=== PATIENT | female | born 1960 | race Caucasian/White ===

== ENCOUNTER 2022-08-12 13:40 | Inpatient (IN) | payer OTHER ==
[2022-08-12 15:34] VITALS: BMI 24.5
[2022-08-12] MEDS ORDERED: BISMUTH SUBSALICYLATE 524 MG/30 ML PO PRN (16:52)
[2022-08-12] MEDS ORDERED: LOPERAMIDE HCL 2 MG CAPSULE PO PRN (16:52)
[2022-08-12] MEDS ORDERED: BENZOCAINE/MENTHOL (CHLORASEPTIC ) LOZENGE MM PRN (16:52)
[2022-08-12] MEDS ORDERED: methaDONE HCL 10 MG TABLET (FOR DETOX USE ONLY) PO ONE (16:52)
[2022-08-12] MEDS ORDERED: NALOXONE HCL (KLOXXADO) 8 MG SPRAY NS PRN (16:52)
[2022-08-12] MEDS ORDERED: ACETAMINOPHEN 325 MG TABLET (FP) PO PRN (16:52)
[2022-08-12] MEDS ORDERED: NICOTINE 10 MG CARTRIDGE (INHALER) IH PRN (16:52)
[2022-08-12] MEDS ORDERED: cloNIDine HCL 0.1 MG TABLET PO PRN (16:52)
[2022-08-12] MEDS ORDERED: MAGNESIUM HYDROX 2400MG/30ML ORAL SUSPENSION 30 ML CUP PO PRN (16:52)
[2022-08-12] MEDS ORDERED: DICYCLOMINE HCL 10 MG CAPSULE PO PRN (16:52)
[2022-08-12] MEDS ORDERED: POLYETHYLENE GLYCOL (HEALTHYLAX) 3350 17 GM PACKET PO PRN (16:52)
[2022-08-12] MEDS ORDERED: methaDONE HCL 10 MG TABLET (FOR DETOX USE ONLY) ONE (18:42)
[2022-08-12] MEDS ORDERED: diazePAM 5 MG TABLET ONE (18:42)
[2022-08-12] MEDS ORDERED: IBUPROFEN 600 MG TABLET (FP) PO ONE (18:43)
[2022-08-12] MEDS: diazePAM 5 MG TABLET PO SCH ×2 (18:47→23:17)
[2022-08-12] MEDS: IBUPROFEN 600 MG TABLET (FP) PO PRN (18:47)
[2022-08-12] MEDS: THIAMINE HCL 100 MG TABLET (FP) PO SCH (23:17)
[2022-08-12] MEDS: MELATONIN 5 MG TABLETS PO SCH (23:17)
[2022-08-13] MEDS ORDERED: HYDROCORTISONE 1% TOPICAL CREAM 30 GM TUBE TP PRN (00:44)
[2022-08-13] MEDS: diazePAM 5 MG TABLET PO SCH ×4 (06:32→22:02)
[2022-08-13] MEDS: IBUPROFEN 600 MG TABLET (FP) PO PRN (06:35)
[2022-08-13] MEDS: METHOCARBAMOL 500 MG TABLET PO PRN (06:35)
[2022-08-13] MEDS: PRENATAL VITAMINS W/ FOLIC ACID TABLET (FP) PO SCH (10:16)
[2022-08-13] MEDS: diazePAM 5 MG TABLET PO PRN (14:08)
[2022-08-13] MEDS ORDERED: ALBUTEROL SO4 HFA INHALER IH PRN (16:29)
[2022-08-13] MEDS: MELATONIN 5 MG TABLETS PO SCH (22:01)
[2022-08-13] MEDS: BRIMONIDINE TARTRATE 0.2% OPHTHALMIC 5 ML BOTTLE OS SCH (22:01)
[2022-08-13] MEDS: THIAMINE HCL 100 MG TABLET (FP) PO SCH (22:01)
[2022-08-13] MEDS: METOPROLOL TARTRATE 25 MG TABLET (FP) PO SCH (22:01)
[2022-08-14] MEDS: IBUPROFEN 400 MG TABLET (FP) PO PRN (02:01)
[2022-08-14] MEDS: diazePAM 5 MG TABLET PO SCH ×3 (05:25→22:26)
[2022-08-14] MEDS: LEVOTHYROXINE NA 100 MCG TABLET (FP) PO SCH (06:03)
[2022-08-14] MEDS ORDERED: methaDONE HCL 10 MG TABLET (FOR DETOX USE ONLY) PO ONE (10:00)
[2022-08-14] MEDS: ASPIRIN 81 MG CHEWABLE TABLETS PO SCH (10:22)
[2022-08-14] MEDS: PRENATAL VITAMINS W/ FOLIC ACID TABLET (FP) PO SCH (10:23)
[2022-08-14] MEDS: METOPROLOL TARTRATE 25 MG TABLET (FP) PO SCH ×2 (10:23→22:05)
[2022-08-14] MEDS: PARoxetine HCL 20 MG TABLET PO SCH (10:23)
[2022-08-14] MEDS: METHOCARBAMOL 500 MG TABLET PO PRN (10:23)
[2022-08-14] MEDS: BRIMONIDINE TARTRATE 0.2% OPHTHALMIC 5 ML BOTTLE OS SCH ×2 (10:28→22:05)
[2022-08-14] MEDS: diazePAM 5 MG TABLET PO PRN (12:23)
[2022-08-14 14:08] LABS: HEMATOCRIT 32.3 % (32.4-45.2); HEMOGLOBIN 10.6 GM/dL (10.7-15.3); MCHC 32.8 g/dl (32.0-36.0); MEAN CELL VOLUME 91.7 fl (80-96); MEAN PLT VOLUME 8.3 fl (7.5-11.1); PLATELET COUNT 257 10^3/uL (134-434); RBC 3.52 M/mm3 (3.60-5.2); RDW 19.7 % (11.6-15.6); WHITE BLOOD COUNT 6.8 K/mm3 (4.0-10.0)
[2022-08-14] MEDS: ACETAMINOPHEN 325 MG TABLET (FP) PO PRN (15:19)
[2022-08-14 15:34] LABS: BILIRUBIN,TOTAL 0.2 mg/dL (0.2-1); BLOOD UREA NITROGEN 15.1 mg/dL (7-18)
[2022-08-14 15:35] LABS: CREATININE 0.5 mg/dL (0.55-1.3)
[2022-08-14] MEDS: IBUPROFEN 600 MG TABLET (FP) PO PRN (22:05)
[2022-08-14] MEDS: THIAMINE HCL 100 MG TABLET (FP) PO SCH (22:05)
[2022-08-14] MEDS: MELATONIN 5 MG TABLETS PO SCH (22:12)
[2022-08-14] MEDS: MAG HYDROX/AL HYDROX/SIMETH 30 ML UNIT-DOSE CUP PO PRN (23:11)
[2022-08-15] MEDS: diazePAM 5 MG TABLET PO SCH ×2 (05:40→18:07)
[2022-08-15] MEDS: IBUPROFEN 400 MG TABLET (FP) PO PRN (05:42)
[2022-08-15] MEDS: LEVOTHYROXINE NA 100 MCG TABLET (FP) PO SCH (06:01)
[2022-08-15] MEDS: PARoxetine HCL 20 MG TABLET PO SCH (10:25)
[2022-08-15] MEDS: PRENATAL VITAMINS W/ FOLIC ACID TABLET (FP) PO SCH (10:25)
[2022-08-15] MEDS: ASPIRIN 81 MG CHEWABLE TABLETS PO SCH (10:25)
[2022-08-15] MEDS: METOPROLOL TARTRATE 25 MG TABLET (FP) PO SCH ×2 (10:26→22:58)
[2022-08-15] MEDS: BRIMONIDINE TARTRATE 0.2% OPHTHALMIC 5 ML BOTTLE OS SCH ×2 (10:26→22:59)
[2022-08-15] MEDS ORDERED: ONDANSETRON *ODT* 4 MG TABLET SL ONE (10:30)
[2022-08-15] MEDS: IBUPROFEN 600 MG TABLET (FP) PO PRN (18:07)
[2022-08-15] MEDS: MELATONIN 5 MG TABLETS PO SCH (22:58)
[2022-08-15] MEDS: THIAMINE HCL 100 MG TABLET (FP) PO SCH (22:58)
[2022-08-16] MEDS: MELATONIN 5 MG TABLETS PO SCH ×2 (00:47→22:00)
[2022-08-16] MEDS: METHOCARBAMOL 500 MG TABLET PO PRN (00:47)
[2022-08-16] MEDS: MAG HYDROX/AL HYDROX/SIMETH 30 ML UNIT-DOSE CUP PO PRN ×2 (00:49→21:59)
[2022-08-16] MEDS ORDERED: diazePAM 5 MG TABLET PO ONE (06:00)
[2022-08-16] MEDS: LEVOTHYROXINE NA 100 MCG TABLET (FP) PO SCH (06:24)
[2022-08-16] MEDS ORDERED: methaDONE HCL 10 MG TABLET (FOR DETOX USE ONLY) PO ONE (10:00)
[2022-08-16] MEDS: ASPIRIN 81 MG CHEWABLE TABLETS PO SCH (10:27)
[2022-08-16] MEDS: METOPROLOL TARTRATE 25 MG TABLET (FP) PO SCH ×2 (10:27→21:59)
[2022-08-16] MEDS: PRENATAL VITAMINS W/ FOLIC ACID TABLET (FP) PO SCH (10:28)
[2022-08-16] MEDS: PARoxetine HCL 20 MG TABLET PO SCH (10:28)
[2022-08-16] MEDS: ACETAMINOPHEN 325 MG TABLET (FP) PO PRN ×2 (10:30→20:49)
[2022-08-16] MEDS: BRIMONIDINE TARTRATE 0.2% OPHTHALMIC 5 ML BOTTLE OS SCH ×2 (10:32→21:59)
[2022-08-16] MEDS: THIAMINE HCL 100 MG TABLET (FP) PO SCH (21:59)
[2022-08-16] MEDS: IBUPROFEN 600 MG TABLET (FP) PO PRN (22:04)
[2022-08-17] MEDS: LEVOTHYROXINE NA 100 MCG TABLET (FP) PO SCH (06:02)
[2022-08-17] MEDS: MAG HYDROX/AL HYDROX/SIMETH 30 ML UNIT-DOSE CUP PO PRN (06:03)
[2022-08-17 09:08] VITALS: BP 111/63; PULSE 71; RESP 16; TEMP 96.7
[2022-08-17] MEDS: METOPROLOL TARTRATE 25 MG TABLET (FP) PO SCH (09:47)
[2022-08-17] MEDS: PRENATAL VITAMINS W/ FOLIC ACID TABLET (FP) PO SCH (09:47)
[2022-08-17] MEDS: PARoxetine HCL 20 MG TABLET PO SCH (09:47)
[2022-08-17] MEDS: BRIMONIDINE TARTRATE 0.2% OPHTHALMIC 5 ML BOTTLE OS SCH (09:48)
[2022-08-17] MEDS: ASPIRIN 81 MG CHEWABLE TABLETS PO SCH (09:48)
== END 2022-08-17 10:11 | disposition home or self-care (01) | DRG 773 ==
LOC: YASAS 13:40 → Y3N 19:51
PROVIDERS: ADMIT Allergy & Immunology; ATTEND Family Medicine
PROC: HZ2ZZZZ Detoxification Services for Substance Abuse Treatment (ICD-10-PCS; principal; 2022-08-12)
DX: F11.23 Opioid dependence with withdrawal (principal); F13.20 Sedative, hypnotic or anxiolytic dependence, uncomplicated; D64.9 Anemia, unspecified; E03.9 Hypothyroidism, unspecified; I48.0 Paroxysmal atrial fibrillation; I10 Essential (primary) hypertension; J45.20 Mild intermittent asthma, uncomplicated; Z96.653 Presence of artificial knee joint, bilateral; Z88.1 Allergy status to other antibiotic agents; Z88.8 Allergy status to other drugs, medicaments and biological substances
CPT/HCPCS: 36415; 80053; 84443; 85027; 86780; C9803-CS; Q0162; U0003; U0005

== ENCOUNTER 2022-10-09 12:31 | Inpatient (IN) | payer OTHER ==
[2022-10-09 13:08] VITALS: BMI 21.1
[2022-10-09] MEDS ORDERED: COLLOIDAL OATMEAL 1 BAR EACH TP PRN (14:56)
[2022-10-09] MEDS ORDERED: NALOXONE HCL 0.4 MG/ML VIAL IM PRN (14:56)
[2022-10-09] MEDS ORDERED: MAGNESIUM HYDROX 2400MG/30ML ORAL SUSPENSION 30 ML CUP PO PRN (14:56)
[2022-10-09] MEDS ORDERED: IBUPROFEN 400 MG TABLET (FP) PO PRN (14:56)
[2022-10-09] MEDS ORDERED: NALOXONE HCL (KLOXXADO) 8 MG SPRAY NS PRN (14:56)
[2022-10-09] MEDS ORDERED: BISMUTH SUBSALICYLATE 262 MG/15 ML BTL PO PRN (14:56)
[2022-10-09] MEDS ORDERED: LOPERAMIDE HCL 2 MG CAPSULE PO PRN (14:56)
[2022-10-09] MEDS ORDERED: POLYETHYLENE GLYCOL (HEALTHYLAX) 3350 17 GM PACKET PO PRN (14:56)
[2022-10-09] MEDS ORDERED: ACETAMINOPHEN 325 MG TABLET (FP) PO PRN (14:56)
[2022-10-09] MEDS ORDERED: NICOTINE 10 MG CARTRIDGE (INHALER) IH PRN (14:56)
[2022-10-09] MEDS ORDERED: IBUPROFEN 600 MG TABLET (FP) PO PRN (14:56)
[2022-10-09] MEDS ORDERED: MAG HYDROX/AL HYDROX/SIMETH 30 ML UNIT-DOSE CUP PO PRN (14:56)
[2022-10-09] MEDS ORDERED: guaiFENesin 600 MG TABLET.ER (FP) PO PRN (14:56)
[2022-10-09] MEDS ORDERED: BENZONATATE 200 MG CAPSULE PO PRN (14:56)
[2022-10-09] MEDS ORDERED: DICYCLOMINE HCL 10 MG CAPSULE PO PRN (14:56)
[2022-10-09] MEDS ORDERED: AMMONIUM LACTATE 12% LOTION 225 GM BOTTLE TP PRN (14:56)
[2022-10-09] MEDS ORDERED: BENZOCAINE/MENTHOL (CHLORASEPTIC ) LOZENGE MM PRN (14:56)
[2022-10-09] MEDS ORDERED: ALBUTEROL SO4 HFA INHALER IH PRN (15:04)
[2022-10-09] MEDS ORDERED: ERGOCALCIFEROL (VIT D2) 50,000 UNIT (1.25 MG) CAPSULE PO SCH (15:15)
[2022-10-09] MEDS ORDERED: methaDONE HCL 10 MG TABLET (FOR DETOX USE ONLY) PO ONE (17:00)
[2022-10-09] MEDS: LORazepam 2 MG TABLET PO SCH ×2 (17:50→22:19)
[2022-10-09] MEDS: ASPIRIN 81 MG CHEWABLE TABLETS PO SCH (17:50)
[2022-10-09] MEDS: PRENATAL VITAMINS W/ FOLIC ACID TABLET (FP) PO SCH (17:50)
[2022-10-09] MEDS: PANTOPRAZOLE 20 MG TABLET PO SCH (17:50)
[2022-10-09] MEDS: LEVOTHYROXINE NA 100 MCG TABLET (FP) PO SCH (18:21)
[2022-10-09] MEDS: NICOTINE POLACRILEX 2 MG GUM BUC PRN (19:15)
[2022-10-09] MEDS: METOPROLOL TARTRATE 25 MG TABLET (FP) PO SCH (22:19)
[2022-10-09] MEDS: THIAMINE HCL 100 MG TABLET (FP) PO SCH (22:19)
[2022-10-09] MEDS: TOLNAFTATE 1% CREAM 15 GM TUBE TP SCH (22:20)
[2022-10-09] MEDS: MELATONIN 5 MG TABLETS PO SCH (22:20)
[2022-10-10] MEDS: METHOCARBAMOL 500 MG TABLET PO PRN (01:11)
[2022-10-10] MEDS: LORazepam 1 MG TABLET PO PRN (01:11)
[2022-10-10] MEDS: LORazepam 2 MG TABLET PO SCH ×4 (05:26→22:45)
[2022-10-10] MEDS: BRIMONIDINE TARTRATE 0.2% OPHTHALMIC 5 ML BOTTLE OS SCH ×5 (07:00→23:12)
[2022-10-10] MEDS: LEVOTHYROXINE NA 100 MCG TABLET (FP) PO SCH (07:01)
[2022-10-10] MEDS: PRENATAL VITAMINS W/ FOLIC ACID TABLET (FP) PO SCH (10:17)
[2022-10-10] MEDS: METOPROLOL TARTRATE 25 MG TABLET (FP) PO SCH ×2 (10:17→22:45)
[2022-10-10] MEDS: ASPIRIN 81 MG CHEWABLE TABLETS PO SCH (10:17)
[2022-10-10] MEDS: PANTOPRAZOLE 20 MG TABLET PO SCH (10:17)
[2022-10-10] MEDS: TOLNAFTATE 1% CREAM 15 GM TUBE TP SCH ×2 (10:22→22:49)
[2022-10-10 11:51] LABS: HEMATOCRIT 32.7 % (32.4-45.2); HEMOGLOBIN 10.8 GM/dL (10.7-15.3); MCH 28.4 pg (25.7-33.7); MCHC 32.9 g/dl (32.0-36.0); MEAN CELL VOLUME 86.2 fl (80-96); MEAN PLT VOLUME 8.3 fl (7.5-11.1); PLATELET COUNT 269 10^3/uL (134-434); RDW 17.5 % (11.6-15.6); WHITE BLOOD COUNT 6.2 K/mm3 (4.0-10.0)
[2022-10-10 11:59] LABS: ALBUMIN 3.7 g/dl (3.4-5.0); BLOOD UREA NITROGEN 16.2 mg/dL (7-18); CALCIUM 9.4 mg/dL (8.5-10.1)
[2022-10-10 12:02] LABS: CREATININE 0.6 mg/dL (0.55-1.3)
[2022-10-10 12:04] LABS: BILIRUBIN,TOTAL 0.4 mg/dL (0.2-1); TOT PROT 7.6 g/dl (6.4-8.2)
[2022-10-10] MEDS: NICOTINE POLACRILEX 2 MG GUM BUC PRN ×2 (16:59→22:49)
[2022-10-10] MEDS: ONDANSETRON *ODT* 4 MG TABLET SL PRN (18:01)
[2022-10-10] MEDS: THIAMINE HCL 100 MG TABLET (FP) PO SCH (22:45)
[2022-10-10] MEDS: MELATONIN 5 MG TABLETS PO SCH (23:13)
[2022-10-11] MEDS: METHOCARBAMOL 500 MG TABLET PO PRN (02:43)
[2022-10-11] MEDS: LORazepam 1 MG TABLET PO PRN ×2 (02:48→14:45)
[2022-10-11] MEDS: LORazepam 1 MG TABLET PO SCH ×4 (05:49→22:18)
[2022-10-11] MEDS: BRIMONIDINE TARTRATE 0.2% OPHTHALMIC 5 ML BOTTLE OS SCH ×3 (05:50→22:18)
[2022-10-11] MEDS: LEVOTHYROXINE NA 100 MCG TABLET (FP) PO SCH (05:59)
[2022-10-11] MEDS ORDERED: methaDONE HCL 10 MG TABLET (FOR DETOX USE ONLY) PO ONE (10:00)
[2022-10-11] MEDS: METOPROLOL TARTRATE 25 MG TABLET (FP) PO SCH ×2 (10:11→23:34)
[2022-10-11] MEDS: PRENATAL VITAMINS W/ FOLIC ACID TABLET (FP) PO SCH (10:11)
[2022-10-11] MEDS: PANTOPRAZOLE 20 MG TABLET PO SCH (10:11)
[2022-10-11] MEDS: ASPIRIN 81 MG CHEWABLE TABLETS PO SCH (10:11)
[2022-10-11] MEDS: TOLNAFTATE 1% CREAM 15 GM TUBE TP SCH ×2 (10:13→22:22)
[2022-10-11] MEDS: LACTULOSE 20 GM/30 ML UDC (FOR ORAL USE ONLY) PO SCH ×2 (10:34→22:15)
[2022-10-11] MEDS: ONDANSETRON *ODT* 4 MG TABLET SL PRN (10:39)
[2022-10-11] MEDS: NICOTINE POLACRILEX 2 MG GUM BUC PRN (11:30)
[2022-10-11] MEDS: MELATONIN 5 MG TABLETS PO SCH (22:18)
[2022-10-11] MEDS: THIAMINE HCL 100 MG TABLET (FP) PO SCH (22:18)
[2022-10-12] MEDS ORDERED: LORazepam 0.5 MG TABLET PO PRN
[2022-10-12] MEDS: LORazepam 0.5 MG TABLET PO SCH ×4 (05:35→22:21)
[2022-10-12] MEDS: BRIMONIDINE TARTRATE 0.2% OPHTHALMIC 5 ML BOTTLE OS SCH ×3 (05:36→22:20)
[2022-10-12] MEDS: LEVOTHYROXINE NA 100 MCG TABLET (FP) PO SCH (06:38)
[2022-10-12] MEDS: PANTOPRAZOLE 20 MG TABLET PO SCH (10:17)
[2022-10-12] MEDS: METOPROLOL TARTRATE 25 MG TABLET (FP) PO SCH ×2 (10:17→22:21)
[2022-10-12] MEDS: ASPIRIN 81 MG CHEWABLE TABLETS PO SCH (10:17)
[2022-10-12] MEDS: PRENATAL VITAMINS W/ FOLIC ACID TABLET (FP) PO SCH (10:17)
[2022-10-12] MEDS: TOLNAFTATE 1% CREAM 15 GM TUBE TP SCH ×2 (10:19→22:21)
[2022-10-12] MEDS: LACTULOSE 20 GM/30 ML UDC (FOR ORAL USE ONLY) PO SCH ×2 (10:19→22:21)
[2022-10-12] MEDS: NICOTINE POLACRILEX 2 MG GUM BUC PRN (15:31)
[2022-10-12] MEDS: MELATONIN 5 MG TABLETS PO SCH (22:21)
[2022-10-12] MEDS: THIAMINE HCL 100 MG TABLET (FP) PO SCH (23:23)
[2022-10-13] MEDS ORDERED: LORazepam 0.5 MG TABLET PO ONE (05:00)
[2022-10-13] MEDS: BRIMONIDINE TARTRATE 0.2% OPHTHALMIC 5 ML BOTTLE OS SCH ×3 (06:23→22:39)
[2022-10-13] MEDS: LEVOTHYROXINE NA 100 MCG TABLET (FP) PO SCH (06:43)
[2022-10-13] MEDS ORDERED: methaDONE HCL 10 MG TABLET (FOR DETOX USE ONLY) PO ONE (10:00)
[2022-10-13] MEDS: PRENATAL VITAMINS W/ FOLIC ACID TABLET (FP) PO SCH (10:27)
[2022-10-13] MEDS: PANTOPRAZOLE 20 MG TABLET PO SCH (10:27)
[2022-10-13] MEDS: ASPIRIN 81 MG CHEWABLE TABLETS PO SCH (10:27)
[2022-10-13] MEDS: LACTULOSE 20 GM/30 ML UDC (FOR ORAL USE ONLY) PO SCH ×2 (10:28→22:39)
[2022-10-13] MEDS: METOPROLOL TARTRATE 25 MG TABLET (FP) PO SCH ×2 (10:28→22:39)
[2022-10-13] MEDS: hydrOXYzine PAMOATE 25 MG CAPSULE (FP) PO PRN (10:29)
[2022-10-13] MEDS: METHOCARBAMOL 500 MG TABLET PO PRN ×2 (10:29→22:38)
[2022-10-13] MEDS: TOLNAFTATE 1% CREAM 15 GM TUBE TP SCH ×2 (10:35→22:39)
[2022-10-13] MEDS: NICOTINE POLACRILEX 2 MG GUM BUC PRN (17:06)
[2022-10-13] MEDS: MELATONIN 5 MG TABLETS PO SCH (22:38)
[2022-10-13] MEDS: THIAMINE HCL 100 MG TABLET (FP) PO SCH (22:38)
[2022-10-14] MEDS: BRIMONIDINE TARTRATE 0.2% OPHTHALMIC 5 ML BOTTLE OS SCH (05:41)
[2022-10-14] MEDS: LEVOTHYROXINE NA 100 MCG TABLET (FP) PO SCH (06:06)
[2022-10-14 07:51] VITALS: RESP 17
[2022-10-14 09:55] VITALS: BP 116/66; PULSE 83; TEMP 97.1
[2022-10-14] MEDS: TOLNAFTATE 1% CREAM 15 GM TUBE TP SCH (10:52)
[2022-10-14] MEDS: PANTOPRAZOLE 20 MG TABLET PO SCH (10:52)
[2022-10-14] MEDS: ASPIRIN 81 MG CHEWABLE TABLETS PO SCH (10:52)
[2022-10-14] MEDS: METOPROLOL TARTRATE 25 MG TABLET (FP) PO SCH (10:53)
[2022-10-14] MEDS: PRENATAL VITAMINS W/ FOLIC ACID TABLET (FP) PO SCH (10:53)
[2022-10-14] MEDS: LACTULOSE 20 GM/30 ML UDC (FOR ORAL USE ONLY) PO SCH (11:03)
[2022-10-14] MEDS: hydrOXYzine PAMOATE 25 MG CAPSULE (FP) PO PRN (11:08)
== END 2022-10-14 13:35 | disposition home or self-care (01) | DRG 773 ==
LOC: YASAS 12:31 → Y6N 15:38
PROVIDERS: ADMIT Allergy & Immunology; ATTEND Surgery
PROC: HZ2ZZZZ Detoxification Services for Substance Abuse Treatment (ICD-10-PCS; principal; 2022-10-09)
DX: F10.230 Alcohol dependence with withdrawal, uncomplicated (principal); F13.230 Sedative, hypnotic or anxiolytic dependence with withdrawal, uncomplicated; F11.20 Opioid dependence, uncomplicated; F14.10 Cocaine abuse, uncomplicated; F19.24 Other psychoactive substance dependence with psychoactive substance-induced mood disorder; F41.1 Generalized anxiety disorder; F43.10 Post-traumatic stress disorder, unspecified; E03.9 Hypothyroidism, unspecified; I10 Essential (primary) hypertension; J45.20 Mild intermittent asthma, uncomplicated; H40.3 Glaucoma secondary to eye trauma; B35.1 Tinea unguium; Z96.653 Presence of artificial knee joint, bilateral; Z62.810 Personal history of physical and sexual abuse in childhood; Z87.820 Personal history of traumatic brain injury; Z87.891 Personal history of nicotine dependence; Z88.1 Allergy status to other antibiotic agents; Z88.8 Allergy status to other drugs, medicaments and biological substances
CPT/HCPCS: 36415; 71045-TC-FY; 80053; 82140; 82607; 82746; 85027; 86780; 87811; 93005; 93010; C9803-CS; Q0162; U0003; U0005

== ENCOUNTER 2022-12-06 12:12 | Inpatient (IN) | payer OTHER ==
[2022-12-06 13:04] VITALS: BMI 22.8
[2022-12-06] MEDS ORDERED: IBUPROFEN 600 MG TABLET (FP) PO PRN (13:50)
[2022-12-06] MEDS ORDERED: NICOTINE 10 MG CARTRIDGE (INHALER) IH PRN (13:50)
[2022-12-06] MEDS ORDERED: BENZONATATE 200 MG CAPSULE PO PRN (13:50)
[2022-12-06] MEDS ORDERED: IBUPROFEN 400 MG TABLET (FP) PO PRN (13:50)
[2022-12-06] MEDS ORDERED: POLYETHYLENE GLYCOL (HEALTHYLAX) 3350 17 GM PACKET PO PRN (13:50)
[2022-12-06] MEDS ORDERED: AMMONIUM LACTATE 12% LOTION 225 GM BOTTLE TP PRN (13:50)
[2022-12-06] MEDS ORDERED: BISMUTH SUBSALICYLATE 524 MG/30 ML PO PRN (13:50)
[2022-12-06] MEDS ORDERED: MAGNESIUM HYDROX 2400MG/30ML ORAL SUSPENSION 30 ML CUP PO PRN (13:50)
[2022-12-06] MEDS ORDERED: NALOXONE HCL (KLOXXADO) 8 MG SPRAY NS PRN (13:50)
[2022-12-06] MEDS ORDERED: COLLOIDAL OATMEAL 1 BAR EACH TP PRN (13:50)
[2022-12-06] MEDS ORDERED: ACETAMINOPHEN 325 MG TABLET (FP) PO PRN (13:50)
[2022-12-06] MEDS ORDERED: NALOXONE HCL 0.4 MG/ML VIAL IM PRN (13:50)
[2022-12-06] MEDS ORDERED: LOPERAMIDE HCL 2 MG CAPSULE PO PRN (13:50)
[2022-12-06] MEDS ORDERED: NICOTINE POLACRILEX 2 MG GUM BUC PRN ×2 (13:50→15:31)
[2022-12-06] MEDS ORDERED: cloNIDine HCL 0.1 MG TABLET PO PRN (13:50)
[2022-12-06] MEDS ORDERED: ONDANSETRON *ODT* 4 MG TABLET SL PRN (13:50)
[2022-12-06] MEDS ORDERED: guaiFENesin 600 MG TABLET.ER (FP) PO PRN (13:50)
[2022-12-06] MEDS ORDERED: METHOCARBAMOL 500 MG TABLET PO PRN (13:50)
[2022-12-06] MEDS ORDERED: BENZOCAINE/MENTHOL (CHLORASEPTIC ) LOZENGE MM PRN (13:50)
[2022-12-06] MEDS ORDERED: DICYCLOMINE HCL 10 MG CAPSULE PO PRN (13:50)
[2022-12-06] MEDS ORDERED: ALBUTEROL SO4 HFA INHALER IH PRN (13:57)
[2022-12-06] MEDS ORDERED: ERGOCALCIFEROL (VIT D2) 50,000 UNIT (1.25 MG) CAPSULE PO SCH (14:00)
[2022-12-06] MEDS ORDERED: methaDONE HCL 10 MG TABLET (FOR DETOX USE ONLY) PO ONE (14:15)
[2022-12-06] MEDS ORDERED: LORazepam 2 MG TABLET PO ONE (14:15)
[2022-12-06] MEDS ORDERED: methaDONE HCL 10 MG TABLET (FOR DETOX USE ONLY) ONE (14:50)
[2022-12-06] MEDS ORDERED: LORazepam 2 MG TABLET ONE (14:50)
[2022-12-06] MEDS: ASPIRIN 81 MG CHEWABLE TABLETS PO SCH (15:17)
[2022-12-06] MEDS: LEVOTHYROXINE NA 100 MCG TABLET (FP) PO SCH (15:17)
[2022-12-06] MEDS: METOPROLOL TARTRATE 25 MG TABLET (FP) PO SCH ×2 (15:18→22:07)
[2022-12-06] MEDS: BRIMONIDINE TARTRATE 0.2% OPHTHALMIC 5 ML BOTTLE OU SCH ×2 (15:18→22:06)
[2022-12-06] MEDS: PANTOPRAZOLE 20 MG TABLET PO SCH (15:19)
[2022-12-06] MEDS: LORazepam 2 MG TABLET PO SCH ×2 (17:53→22:07)
[2022-12-06] MEDS: diphenhydrAMINE HCL 25 MG CAPSULE (FP) PO PRN (19:15)
[2022-12-06] MEDS: THIAMINE HCL 100 MG TABLET (FP) PO SCH (22:07)
[2022-12-06] MEDS: MELATONIN 5 MG TABLETS PO SCH (22:07)
[2022-12-07] MEDS: MAG HYDROX/AL HYDROX/SIMETH 30 ML UNIT-DOSE CUP PO PRN (02:30)
[2022-12-07] MEDS: LORazepam 2 MG TABLET PO SCH ×4 (05:16→22:04)
[2022-12-07] MEDS: BRIMONIDINE TARTRATE 0.2% OPHTHALMIC 5 ML BOTTLE OU SCH ×3 (05:17→22:03)
[2022-12-07] MEDS: LEVOTHYROXINE NA 100 MCG TABLET (FP) PO SCH (06:07)
[2022-12-07] MEDS: ASPIRIN 81 MG CHEWABLE TABLETS PO SCH (10:32)
[2022-12-07] MEDS: PRENATAL VITAMINS W/ FOLIC ACID TABLET (FP) PO SCH (10:32)
[2022-12-07] MEDS: METOPROLOL TARTRATE 25 MG TABLET (FP) PO SCH ×2 (10:35→22:03)
[2022-12-07] MEDS: PANTOPRAZOLE 20 MG TABLET PO SCH (10:35)
[2022-12-07 11:56] LABS: HEMATOCRIT 31.2 % (32.4-45.2); MCH 27.6 pg (25.7-33.7); MEAN CELL VOLUME 86.1 fl (80-96); MEAN PLT VOLUME 8.3 fl (7.5-11.1); PLATELET COUNT 276 10^3/uL (134-434); RBC 3.63 M/mm3 (3.60-5.2); RDW 19.7 % (11.6-15.6); WHITE BLOOD COUNT 6.2 K/mm3 (4.0-10.0)
[2022-12-07 11:58] LABS: POTASSIUM 4.2 mmol/L (3.5-5.1)
[2022-12-07 12:02] LABS: CALCIUM 9.4 mg/dL (8.5-10.1)
[2022-12-07 12:03] LABS: ALBUMIN 3.5 g/dl (3.4-5.0); BLOOD UREA NITROGEN 15.1 mg/dL (7-18)
[2022-12-07 12:05] LABS: CREATININE 0.6 mg/dL (0.55-1.3)
[2022-12-07 12:07] LABS: BILIRUBIN,TOTAL 0.4 mg/dL (0.2-1); TOT PROT 7.2 g/dl (6.4-8.2)
[2022-12-07] MEDS: LORazepam 0.5 MG TABLET PO PRN (20:21)
[2022-12-07] MEDS: THIAMINE HCL 100 MG TABLET (FP) PO SCH (22:03)
[2022-12-07] MEDS: MELATONIN 5 MG TABLETS PO SCH (22:03)
[2022-12-08] MEDS: MAG HYDROX/AL HYDROX/SIMETH 30 ML UNIT-DOSE CUP PO PRN (00:11)
[2022-12-08] MEDS: BRIMONIDINE TARTRATE 0.2% OPHTHALMIC 5 ML BOTTLE OU SCH ×3 (05:56→22:05)
[2022-12-08] MEDS: LORazepam 1 MG TABLET PO SCH ×4 (05:57→22:01)
[2022-12-08] MEDS: LEVOTHYROXINE NA 100 MCG TABLET (FP) PO SCH (06:05)
[2022-12-08] MEDS ORDERED: methaDONE HCL 10 MG TABLET (FOR DETOX USE ONLY) PO ONE (10:00)
[2022-12-08] MEDS: PANTOPRAZOLE 20 MG TABLET PO SCH (10:17)
[2022-12-08] MEDS: METOPROLOL TARTRATE 25 MG TABLET (FP) PO SCH ×2 (10:17→21:54)
[2022-12-08] MEDS: ASPIRIN 81 MG CHEWABLE TABLETS PO SCH (10:17)
[2022-12-08] MEDS: PRENATAL VITAMINS W/ FOLIC ACID TABLET (FP) PO SCH (10:17)
[2022-12-08] MEDS: LORazepam 0.5 MG TABLET PO PRN (19:17)
[2022-12-08] MEDS: MELATONIN 5 MG TABLETS PO SCH (21:53)
[2022-12-08] MEDS: THIAMINE HCL 100 MG TABLET (FP) PO SCH (21:54)
[2022-12-09] MEDS: diphenhydrAMINE HCL 25 MG CAPSULE (FP) PO PRN (01:57)
[2022-12-09] MEDS: LORazepam 0.5 MG TABLET PO SCH ×4 (05:55→22:20)
[2022-12-09] MEDS: BRIMONIDINE TARTRATE 0.2% OPHTHALMIC 5 ML BOTTLE OU SCH ×3 (06:36→22:19)
[2022-12-09] MEDS: LEVOTHYROXINE NA 100 MCG TABLET (FP) PO SCH (06:36)
[2022-12-09] MEDS: PRENATAL VITAMINS W/ FOLIC ACID TABLET (FP) PO SCH (10:11)
[2022-12-09] MEDS: PANTOPRAZOLE 20 MG TABLET PO SCH (10:12)
[2022-12-09] MEDS: ASPIRIN 81 MG CHEWABLE TABLETS PO SCH (10:12)
[2022-12-09] MEDS: METOPROLOL TARTRATE 25 MG TABLET (FP) PO SCH ×2 (10:13→22:19)
[2022-12-09] MEDS: MELATONIN 5 MG TABLETS PO SCH (22:19)
[2022-12-09] MEDS: THIAMINE HCL 100 MG TABLET (FP) PO SCH (22:19)
[2022-12-10] MEDS ORDERED: LORazepam 0.5 MG TABLET PO ONE (05:00)
[2022-12-10] MEDS: BRIMONIDINE TARTRATE 0.2% OPHTHALMIC 5 ML BOTTLE OU SCH ×3 (05:43→22:07)
[2022-12-10] MEDS: LEVOTHYROXINE NA 100 MCG TABLET (FP) PO SCH (06:14)
[2022-12-10] MEDS ORDERED: methaDONE HCL 10 MG TABLET (FOR DETOX USE ONLY) PO ONE (10:00)
[2022-12-10] MEDS: PANTOPRAZOLE 20 MG TABLET PO SCH (10:02)
[2022-12-10] MEDS: ASPIRIN 81 MG CHEWABLE TABLETS PO SCH (10:02)
[2022-12-10] MEDS: METOPROLOL TARTRATE 25 MG TABLET (FP) PO SCH ×2 (10:02→22:07)
[2022-12-10] MEDS: PRENATAL VITAMINS W/ FOLIC ACID TABLET (FP) PO SCH (10:03)
[2022-12-10] MEDS: MELATONIN 5 MG TABLETS PO SCH (22:07)
[2022-12-10] MEDS: THIAMINE HCL 100 MG TABLET (FP) PO SCH (22:07)
[2022-12-10] MEDS: diphenhydrAMINE HCL 25 MG CAPSULE (FP) PO PRN (22:08)
[2022-12-11] MEDS: BRIMONIDINE TARTRATE 0.2% OPHTHALMIC 5 ML BOTTLE OU SCH ×2 (05:49→13:49)
[2022-12-11] MEDS: LEVOTHYROXINE NA 100 MCG TABLET (FP) PO SCH (06:15)
[2022-12-11 06:58] VITALS: RESP 16
[2022-12-11 08:40] VITALS: BP 119/84; PULSE 68; TEMP 98.6
[2022-12-11] MEDS: PANTOPRAZOLE 20 MG TABLET PO SCH (10:08)
[2022-12-11] MEDS: PRENATAL VITAMINS W/ FOLIC ACID TABLET (FP) PO SCH (10:08)
[2022-12-11] MEDS: METOPROLOL TARTRATE 25 MG TABLET (FP) PO SCH (10:08)
[2022-12-11] MEDS: ASPIRIN 81 MG CHEWABLE TABLETS PO SCH (10:08)
== END 2022-12-11 13:51 | disposition other institution (70) | DRG 773 ==
LOC: YASAS 12:12 → Y3N 14:55
PROVIDERS: ADMIT Allergy & Immunology; ATTEND Surgery
PROC: HZ2ZZZZ Detoxification Services for Substance Abuse Treatment (ICD-10-PCS; principal; 2022-12-06)
DX: F11.23 Opioid dependence with withdrawal (principal); F10.230 Alcohol dependence with withdrawal, uncomplicated; F13.230 Sedative, hypnotic or anxiolytic dependence with withdrawal, uncomplicated; F19.24 Other psychoactive substance dependence with psychoactive substance-induced mood disorder; F41.1 Generalized anxiety disorder; F43.10 Post-traumatic stress disorder, unspecified; E03.9 Hypothyroidism, unspecified; I10 Essential (primary) hypertension; J45.20 Mild intermittent asthma, uncomplicated; K21.9 Gastro-esophageal reflux disease without esophagitis; L30.9 Dermatitis, unspecified; G40.909 Epilepsy, unspecified, not intractable, without status epilepticus; H40.3 Glaucoma secondary to eye trauma; Z62.810 Personal history of physical and sexual abuse in childhood; Z96.653 Presence of artificial knee joint, bilateral; Z86.79 Personal history of other diseases of the circulatory system; Z87.828 Personal history of other (healed) physical injury and trauma
CPT/HCPCS: 36415; 80053; 82140; 83036; 85027; 86780; 87635; 87811

== ENCOUNTER 2022-12-11 14:01 | Inpatient (IN) | payer OTHER ==
[2022-12-11] MEDS ORDERED: guaiFENesin 600 MG TABLET.ER (FP) PO PRN (16:26)
[2022-12-11] MEDS ORDERED: LOPERAMIDE HCL 2 MG CAPSULE PO PRN (16:26)
[2022-12-11] MEDS ORDERED: NALOXONE HCL 0.4 MG/ML VIAL IVPUSH PRN (16:26)
[2022-12-11] MEDS ORDERED: AMMONIUM LACTATE 12% LOTION 225 GM BOTTLE TP PRN (16:26)
[2022-12-11] MEDS ORDERED: NALOXONE HCL (KLOXXADO) 8 MG SPRAY NS PRN (16:26)
[2022-12-11] MEDS ORDERED: NICOTINE 7 MG/24 HOURS TOPICAL PATCH TD PRN (16:26)
[2022-12-11] MEDS ORDERED: MAGNESIUM HYDROX 2400MG/30ML ORAL SUSPENSION 30 ML CUP PO PRN (16:26)
[2022-12-11] MEDS ORDERED: BENZONATATE 200 MG CAPSULE PO PRN (16:26)
[2022-12-11] MEDS ORDERED: COLLOIDAL OATMEAL 1 BAR EACH TP PRN (16:26)
[2022-12-11] MEDS ORDERED: NICOTINE 10 MG CARTRIDGE (INHALER) IH PRN (16:26)
[2022-12-11] MEDS ORDERED: POLYETHYLENE GLYCOL (HEALTHYLAX) 3350 17 GM PACKET PO PRN (16:26)
[2022-12-11] MEDS ORDERED: BENZOCAINE/MENTHOL (CHLORASEPTIC ) LOZENGE MM PRN (16:26)
[2022-12-11] MEDS: hydrOXYzine PAMOATE 25 MG CAPSULE (FP) PO PRN (17:45)
[2022-12-11] MEDS: METOPROLOL TARTRATE 25 MG TABLET (FP) PO SCH (21:32)
[2022-12-11] MEDS: MELATONIN 5 MG TABLETS PO SCH (21:32)
[2022-12-11] MEDS: THIAMINE HCL 100 MG TABLET (FP) PO SCH (21:32)
[2022-12-11] MEDS: BRIMONIDINE TARTRATE 0.2% OPHTHALMIC 5 ML BOTTLE OU SCH (21:35)
[2022-12-12] MEDS: hydrOXYzine PAMOATE 25 MG CAPSULE (FP) PO PRN ×3 (02:07→21:54)
[2022-12-12] MEDS: BRIMONIDINE TARTRATE 0.2% OPHTHALMIC 5 ML BOTTLE OU SCH ×3 (06:41→21:06)
[2022-12-12] MEDS: LEVOTHYROXINE NA 100 MCG TABLET (FP) PO SCH (07:41)
[2022-12-12] MEDS: ASPIRIN 81 MG CHEWABLE TABLETS PO SCH (10:19)
[2022-12-12] MEDS: METOPROLOL TARTRATE 25 MG TABLET (FP) PO SCH ×2 (10:19→21:06)
[2022-12-12] MEDS: PRENATAL VITAMINS W/ FOLIC ACID TABLET (FP) PO SCH (10:19)
[2022-12-12] MEDS: PARoxetine HCL 20 MG TABLET PO SCH (10:19)
[2022-12-12] MEDS ORDERED: BUPRENORPHINE HCL 150 MCG FILM BC ONE (13:15)
[2022-12-12] MEDS: TOLNAFTATE 1% CREAM 15 GM TUBE TP SCH ×2 (14:13→21:36)
[2022-12-12] MEDS: GABAPENTIN 300 MG CAPSULE PO SCH ×2 (14:13→21:06)
[2022-12-12] MEDS: THIAMINE HCL 100 MG TABLET (FP) PO SCH (21:06)
[2022-12-12] MEDS: MELATONIN 5 MG TABLETS PO SCH (21:06)
[2022-12-12] MEDS: QUEtiapine FUMARATE 50 MG TABLET PO PRN (21:08)
[2022-12-12] MEDS ORDERED: QUEtiapine FUMARATE 50 MG TABLET PO SCH (22:00)
[2022-12-12] MEDS: BACLOFEN 10 MG TABLET (FP) PO PRN (22:35)
[2022-12-13] MEDS: LEVOTHYROXINE NA 100 MCG TABLET (FP) PO SCH (06:31)
[2022-12-13] MEDS: BRIMONIDINE TARTRATE 0.2% OPHTHALMIC 5 ML BOTTLE OU SCH ×3 (06:31→21:40)
[2022-12-13] MEDS: ASPIRIN 81 MG CHEWABLE TABLETS PO SCH (10:10)
[2022-12-13] MEDS: METOPROLOL TARTRATE 25 MG TABLET (FP) PO SCH ×2 (10:10→21:36)
[2022-12-13] MEDS: PARoxetine HCL 20 MG TABLET PO SCH (10:10)
[2022-12-13] MEDS: GABAPENTIN 300 MG CAPSULE PO SCH ×2 (10:11→21:36)
[2022-12-13] MEDS: PRENATAL VITAMINS W/ FOLIC ACID TABLET (FP) PO SCH (10:11)
[2022-12-13] MEDS: TOLNAFTATE 1% CREAM 15 GM TUBE TP SCH ×2 (10:11→21:40)
[2022-12-13] MEDS: BUPRENORPHINE HCL 150 MCG FILM BC SCH ×2 (10:11→21:36)
[2022-12-13] MEDS: NICOTINE POLACRILEX 2 MG GUM BUC PRN ×3 (13:47→18:14)
[2022-12-13] MEDS: hydrOXYzine PAMOATE 25 MG CAPSULE (FP) PO PRN ×2 (14:33→21:41)
[2022-12-13] MEDS: MELATONIN 5 MG TABLETS PO SCH (21:35)
[2022-12-13] MEDS: THIAMINE HCL 100 MG TABLET (FP) PO SCH (21:35)
[2022-12-13] MEDS: QUEtiapine FUMARATE 50 MG TABLET PO PRN (21:36)
[2022-12-13] MEDS: BACLOFEN 10 MG TABLET (FP) PO PRN (22:59)
[2022-12-14] MEDS: LEVOTHYROXINE NA 100 MCG TABLET (FP) PO SCH (06:40)
[2022-12-14] MEDS: BRIMONIDINE TARTRATE 0.2% OPHTHALMIC 5 ML BOTTLE OU SCH ×3 (06:40→21:12)
[2022-12-14] MEDS ORDERED: BUPRENORPHINE HCL 150 MCG FILM BC SCH (10:00)
[2022-12-14] MEDS: METOPROLOL TARTRATE 25 MG TABLET (FP) PO SCH ×2 (10:00→21:12)
[2022-12-14] MEDS: PARoxetine HCL 20 MG TABLET PO SCH (10:00)
[2022-12-14] MEDS: ASPIRIN 81 MG CHEWABLE TABLETS PO SCH (10:00)
[2022-12-14] MEDS: GABAPENTIN 300 MG CAPSULE PO SCH ×2 (10:00→21:12)
[2022-12-14] MEDS: NICOTINE POLACRILEX 2 MG GUM BUC PRN ×4 (10:01→18:32)
[2022-12-14] MEDS: BUPRENORPHINE HCL 75 MCG FILM BC SCH ×2 (10:02→22:35)
[2022-12-14] MEDS: MULTIVITAMINS (DAILY MVI) TABLET (FP) PO SCH (11:07)
[2022-12-14] MEDS: TOLNAFTATE 1% CREAM 15 GM TUBE TP SCH ×2 (11:07→21:12)
[2022-12-14] MEDS: BACLOFEN 10 MG TABLET (FP) PO PRN ×2 (12:36→21:12)
[2022-12-14 16:36] LABS: HIV INTERPRETATION NEGATIVE (NEGATIVE)
[2022-12-14] MEDS: hydrOXYzine PAMOATE 25 MG CAPSULE (FP) PO PRN (21:12)
[2022-12-14] MEDS: MELATONIN 5 MG TABLETS PO SCH (21:14)
[2022-12-14] MEDS: QUEtiapine FUMARATE 50 MG TABLET PO PRN (21:15)
[2022-12-14] MEDS: THIAMINE HCL 100 MG TABLET (FP) PO SCH (21:55)
[2022-12-15] MEDS: LEVOTHYROXINE NA 100 MCG TABLET (FP) PO SCH (06:41)
[2022-12-15] MEDS: BRIMONIDINE TARTRATE 0.2% OPHTHALMIC 5 ML BOTTLE OU SCH ×3 (06:41→21:11)
[2022-12-15] MEDS: NICOTINE POLACRILEX 2 MG GUM BUC PRN ×4 (07:09→17:43)
[2022-12-15] MEDS: PARoxetine HCL 20 MG TABLET PO SCH (09:45)
[2022-12-15] MEDS: METOPROLOL TARTRATE 25 MG TABLET (FP) PO SCH ×2 (09:45→21:06)
[2022-12-15] MEDS: ASPIRIN 81 MG CHEWABLE TABLETS PO SCH (09:46)
[2022-12-15] MEDS: GABAPENTIN 300 MG CAPSULE PO SCH ×2 (09:46→21:06)
[2022-12-15] MEDS: MULTIVITAMINS (DAILY MVI) TABLET (FP) PO SCH (09:47)
[2022-12-15] MEDS: BUPRENORPHINE HCL 450 MCG FILM BC SCH ×2 (09:48→21:06)
[2022-12-15] MEDS: TOLNAFTATE 1% CREAM 15 GM TUBE TP SCH ×2 (09:48→21:07)
[2022-12-15] MEDS: QUEtiapine FUMARATE 50 MG TABLET PO PRN (21:06)
[2022-12-15] MEDS: THIAMINE HCL 100 MG TABLET (FP) PO SCH (21:06)
[2022-12-15] MEDS: MELATONIN 5 MG TABLETS PO SCH (21:07)
[2022-12-15] MEDS: hydrOXYzine PAMOATE 25 MG CAPSULE (FP) PO PRN (21:08)
[2022-12-15] MEDS: BACLOFEN 10 MG TABLET (FP) PO PRN (21:10)
[2022-12-16] MEDS: BRIMONIDINE TARTRATE 0.2% OPHTHALMIC 5 ML BOTTLE OU SCH ×3 (06:24→21:06)
[2022-12-16] MEDS: LEVOTHYROXINE NA 100 MCG TABLET (FP) PO SCH (06:24)
[2022-12-16] MEDS: NICOTINE POLACRILEX 2 MG GUM BUC PRN ×5 (06:26→21:08)
[2022-12-16] MEDS: GABAPENTIN 300 MG CAPSULE PO SCH ×2 (10:10→21:05)
[2022-12-16] MEDS: ASPIRIN 81 MG CHEWABLE TABLETS PO SCH (10:10)
[2022-12-16] MEDS: BUPRENORPHINE/NALOXONE 2 MG/0.5 MG FILM PACKET SL SCH ×2 (10:11→21:04)
[2022-12-16] MEDS: METOPROLOL TARTRATE 25 MG TABLET (FP) PO SCH ×2 (10:11→21:04)
[2022-12-16] MEDS: PARoxetine HCL 20 MG TABLET PO SCH (10:11)
[2022-12-16] MEDS: MULTIVITAMINS (DAILY MVI) TABLET (FP) PO SCH (10:11)
[2022-12-16] MEDS: TOLNAFTATE 1% CREAM 15 GM TUBE TP SCH ×2 (10:12→21:01)
[2022-12-16] MEDS: hydrOXYzine PAMOATE 25 MG CAPSULE (FP) PO PRN ×2 (10:12→21:04)
[2022-12-16] MEDS: THIAMINE HCL 100 MG TABLET (FP) PO SCH (21:04)
[2022-12-16] MEDS: BACLOFEN 10 MG TABLET (FP) PO PRN (21:04)
[2022-12-16] MEDS: QUEtiapine FUMARATE 50 MG TABLET PO PRN (21:04)
[2022-12-16] MEDS: MELATONIN 5 MG TABLETS PO SCH (21:05)
[2022-12-17] MEDS: LEVOTHYROXINE NA 100 MCG TABLET (FP) PO SCH (06:39)
[2022-12-17] MEDS: BRIMONIDINE TARTRATE 0.2% OPHTHALMIC 5 ML BOTTLE OU SCH ×3 (06:39→21:48)
[2022-12-17] MEDS: NICOTINE POLACRILEX 2 MG GUM BUC PRN ×5 (06:40→21:49)
[2022-12-17] MEDS: ASPIRIN 81 MG CHEWABLE TABLETS PO SCH (10:04)
[2022-12-17] MEDS: GABAPENTIN 300 MG CAPSULE PO SCH ×2 (10:04→21:49)
[2022-12-17] MEDS: PARoxetine HCL 20 MG TABLET PO SCH (10:04)
[2022-12-17] MEDS: METOPROLOL TARTRATE 25 MG TABLET (FP) PO SCH ×2 (10:05→22:09)
[2022-12-17] MEDS: BUPRENORPHINE/NALOXONE 2 MG/0.5 MG FILM PACKET SL SCH ×2 (10:05→21:49)
[2022-12-17] MEDS: TOLNAFTATE 1% CREAM 15 GM TUBE TP SCH ×2 (10:05→21:48)
[2022-12-17] MEDS: hydrOXYzine PAMOATE 25 MG CAPSULE (FP) PO PRN ×2 (10:06→21:49)
[2022-12-17] MEDS: BACLOFEN 10 MG TABLET (FP) PO PRN (10:07)
[2022-12-17] MEDS: MULTIVITAMINS (DAILY MVI) TABLET (FP) PO SCH (10:07)
[2022-12-17] MEDS: THIAMINE HCL 100 MG TABLET (FP) PO SCH (21:49)
[2022-12-17] MEDS: IBUPROFEN 600 MG TABLET (FP) PO PRN (21:49)
[2022-12-17] MEDS: QUEtiapine FUMARATE 50 MG TABLET PO PRN (21:49)
[2022-12-17] MEDS: MELATONIN 5 MG TABLETS PO SCH (21:49)
[2022-12-18] MEDS: MAG HYDROX/AL HYDROX/SIMETH 30 ML UNIT-DOSE CUP PO PRN ×2 (03:12→20:02)
[2022-12-18] MEDS: LEVOTHYROXINE NA 100 MCG TABLET (FP) PO SCH (07:01)
[2022-12-18] MEDS: BRIMONIDINE TARTRATE 0.2% OPHTHALMIC 5 ML BOTTLE OU SCH ×4 (07:01→21:53)
[2022-12-18] MEDS: NICOTINE POLACRILEX 2 MG GUM BUC PRN ×2 (07:02→10:15)
[2022-12-18] MEDS: BUPRENORPHINE/NALOXONE 2 MG/0.5 MG FILM PACKET SL SCH ×2 (10:10→21:51)
[2022-12-18] MEDS: ASPIRIN 81 MG CHEWABLE TABLETS PO SCH (10:10)
[2022-12-18] MEDS: METOPROLOL TARTRATE 25 MG TABLET (FP) PO SCH ×2 (10:10→21:50)
[2022-12-18] MEDS: GABAPENTIN 300 MG CAPSULE PO SCH ×2 (10:10→21:50)
[2022-12-18] MEDS: PARoxetine HCL 20 MG TABLET PO SCH (10:10)
[2022-12-18] MEDS: TOLNAFTATE 1% CREAM 15 GM TUBE TP SCH ×2 (10:11→23:37)
[2022-12-18] MEDS: MULTIVITAMINS (DAILY MVI) TABLET (FP) PO SCH (10:12)
[2022-12-18] MEDS: hydrOXYzine PAMOATE 25 MG CAPSULE (FP) PO PRN ×2 (10:13→21:52)
[2022-12-18] MEDS ORDERED: BUPRENORPHINE/NALOXONE 2 MG/0.5 MG FILM PACKET SL ONE (11:50)
[2022-12-18] MEDS: NICOTINE POLACRILEX 4 MG GUM BUC PRN ×3 (13:04→22:22)
[2022-12-18] MEDS: IBUPROFEN 400 MG TABLET (FP) PO PRN (19:52)
[2022-12-18] MEDS: MELATONIN 5 MG TABLETS PO SCH (21:50)
[2022-12-18] MEDS: THIAMINE HCL 100 MG TABLET (FP) PO SCH (21:50)
[2022-12-18] MEDS: QUEtiapine FUMARATE 50 MG TABLET PO PRN (21:53)
[2022-12-19] MEDS: LEVOTHYROXINE NA 100 MCG TABLET (FP) PO SCH (07:24)
[2022-12-19] MEDS: BRIMONIDINE TARTRATE 0.2% OPHTHALMIC 5 ML BOTTLE OU SCH ×3 (07:24→21:20)
[2022-12-19] MEDS: GABAPENTIN 300 MG CAPSULE PO SCH ×2 (10:47→21:20)
[2022-12-19] MEDS: PARoxetine HCL 20 MG TABLET PO SCH (10:47)
[2022-12-19] MEDS: BUPRENORPHINE/NALOXONE 2 MG/0.5 MG FILM PACKET SL SCH ×2 (10:47→21:20)
[2022-12-19] MEDS: ASPIRIN 81 MG CHEWABLE TABLETS PO SCH (10:47)
[2022-12-19] MEDS: METOPROLOL TARTRATE 25 MG TABLET (FP) PO SCH ×2 (10:47→21:20)
[2022-12-19] MEDS: TOLNAFTATE 1% CREAM 15 GM TUBE TP SCH ×2 (10:48→21:21)
[2022-12-19] MEDS: hydrOXYzine PAMOATE 25 MG CAPSULE (FP) PO PRN ×2 (10:49→23:27)
[2022-12-19] MEDS: MULTIVITAMINS (DAILY MVI) TABLET (FP) PO SCH (10:49)
[2022-12-19] MEDS: NICOTINE POLACRILEX 4 MG GUM BUC PRN ×4 (10:52→21:58)
[2022-12-19 18:28] LABS: PH,URINE 7.5 (5.0-8.0); URINE APPEARANCE CLEAR; URINE BILIRUBIN NEGATIVE (NEGATIVE); URINE COLOR YELLOW; URINE GLUCOSE (UA) NEGATIVE (NEGATIVE); URINE KETONE NEGATIVE (NEGATIVE); URINE LEUK ESTERASE NEGATIVE (NEGATIVE); URINE NITRITE NEGATIVE (NEGATIVE); URINE PROTEIN NEGATIVE (NEGATIVE); URINE UROBILINOGEN 0.2 mg/dL (0.2-1.0)
[2022-12-19] MEDS: QUEtiapine FUMARATE 50 MG TABLET PO PRN (21:20)
[2022-12-19] MEDS: THIAMINE HCL 100 MG TABLET (FP) PO SCH (21:21)
[2022-12-19] MEDS: MELATONIN 5 MG TABLETS PO SCH (21:21)
[2022-12-20] MEDS: BRIMONIDINE TARTRATE 0.2% OPHTHALMIC 5 ML BOTTLE OU SCH ×3 (06:19→21:37)
[2022-12-20] MEDS: LEVOTHYROXINE NA 100 MCG TABLET (FP) PO SCH (06:19)
[2022-12-20] MEDS: NICOTINE POLACRILEX 4 MG GUM BUC PRN ×6 (06:20→22:13)
[2022-12-20] MEDS: MULTIVITAMINS (DAILY MVI) TABLET (FP) PO SCH (09:57)
[2022-12-20] MEDS: PARoxetine HCL 20 MG TABLET PO SCH (09:57)
[2022-12-20] MEDS: GABAPENTIN 300 MG CAPSULE PO SCH ×2 (09:58→21:35)
[2022-12-20] MEDS: BUPRENORPHINE/NALOXONE 2 MG/0.5 MG FILM PACKET SL SCH ×2 (09:58→21:35)
[2022-12-20] MEDS: ASPIRIN 81 MG CHEWABLE TABLETS PO SCH (09:58)
[2022-12-20] MEDS: TOLNAFTATE 1% CREAM 15 GM TUBE TP SCH ×2 (10:00→21:39)
[2022-12-20] MEDS: METOPROLOL TARTRATE 25 MG TABLET (FP) PO SCH ×2 (10:56→21:35)
[2022-12-20] MEDS: QUEtiapine FUMARATE 100 MG TABLET (FP) PO PRN (21:35)
[2022-12-20] MEDS: THIAMINE HCL 100 MG TABLET (FP) PO SCH (21:35)
[2022-12-20] MEDS: hydrOXYzine PAMOATE 25 MG CAPSULE (FP) PO PRN (21:35)
[2022-12-20] MEDS: MELATONIN 5 MG TABLETS PO SCH (21:36)
[2022-12-20] MEDS: IBUPROFEN 600 MG TABLET (FP) PO PRN (22:31)
[2022-12-21] MEDS: MAG HYDROX/AL HYDROX/SIMETH 30 ML UNIT-DOSE CUP PO PRN ×2 (00:33→21:58)
[2022-12-21] MEDS: PANTOPRAZOLE 20 MG TABLET PO SCH ×2 (03:33→10:04)
[2022-12-21] MEDS: BRIMONIDINE TARTRATE 0.2% OPHTHALMIC 5 ML BOTTLE OU SCH ×3 (06:40→21:56)
[2022-12-21] MEDS: LEVOTHYROXINE NA 100 MCG TABLET (FP) PO SCH (06:40)
[2022-12-21] MEDS: MULTIVITAMINS (DAILY MVI) TABLET (FP) PO SCH (10:04)
[2022-12-21] MEDS: ASPIRIN 81 MG CHEWABLE TABLETS PO SCH (10:04)
[2022-12-21] MEDS: PARoxetine HCL 20 MG TABLET PO SCH (10:04)
[2022-12-21] MEDS: GABAPENTIN 300 MG CAPSULE PO SCH ×2 (10:04→21:55)
[2022-12-21] MEDS: BUPRENORPHINE/NALOXONE 2 MG/0.5 MG FILM PACKET SL SCH (10:05)
[2022-12-21] MEDS: TOLNAFTATE 1% CREAM 15 GM TUBE TP SCH ×2 (10:07→21:56)
[2022-12-21] MEDS: hydrOXYzine PAMOATE 25 MG CAPSULE (FP) PO PRN ×2 (10:09→21:58)
[2022-12-21] MEDS: NICOTINE POLACRILEX 4 MG GUM BUC PRN ×3 (10:09→15:33)
[2022-12-21] MEDS: METOPROLOL TARTRATE 25 MG TABLET (FP) PO SCH ×2 (11:24→21:56)
[2022-12-21] MEDS: COLLOIDAL OATMEAL 1 BAR EACH TP PRN (12:20)
[2022-12-21] MEDS: THIAMINE HCL 100 MG TABLET (FP) PO SCH (21:55)
[2022-12-21] MEDS: QUEtiapine FUMARATE 100 MG TABLET (FP) PO PRN (21:55)
[2022-12-21] MEDS: BUPRENORPHINE/NALOXONE 4 MG/1 MG FILM PACKET SL SCH (21:55)
[2022-12-21] MEDS: MELATONIN 5 MG TABLETS PO SCH (21:56)
[2022-12-21] MEDS: SIMETHICONE 80 MG TAB.CHEW (FP) PO PRN (22:00)
[2022-12-22] MEDS: BRIMONIDINE TARTRATE 0.2% OPHTHALMIC 5 ML BOTTLE OU SCH ×3 (06:54→21:15)
[2022-12-22] MEDS: LEVOTHYROXINE NA 100 MCG TABLET (FP) PO SCH (06:54)
[2022-12-22] MEDS: NICOTINE POLACRILEX 4 MG GUM BUC PRN ×5 (06:55→21:54)
[2022-12-22] MEDS: BUPRENORPHINE/NALOXONE 4 MG/1 MG FILM PACKET SL SCH ×2 (09:34→21:19)
[2022-12-22] MEDS: GABAPENTIN 300 MG CAPSULE PO SCH ×2 (09:35→21:16)
[2022-12-22] MEDS: PANTOPRAZOLE 20 MG TABLET PO SCH (09:35)
[2022-12-22] MEDS: PARoxetine HCL 20 MG TABLET PO SCH (09:35)
[2022-12-22] MEDS: ASPIRIN 81 MG CHEWABLE TABLETS PO SCH (09:35)
[2022-12-22] MEDS: METOPROLOL TARTRATE 25 MG TABLET (FP) PO SCH ×2 (09:35→21:15)
[2022-12-22] MEDS: TOLNAFTATE 1% CREAM 15 GM TUBE TP SCH ×2 (09:36→21:16)
[2022-12-22] MEDS: MULTIVITAMINS (DAILY MVI) TABLET (FP) PO SCH (09:36)
[2022-12-22] MEDS: hydrOXYzine PAMOATE 25 MG CAPSULE (FP) PO PRN ×2 (10:40→21:52)
[2022-12-22] MEDS: SIMETHICONE 80 MG TAB.CHEW (FP) PO PRN ×2 (15:19→21:19)
[2022-12-22] MEDS: THIAMINE HCL 100 MG TABLET (FP) PO SCH (21:15)
[2022-12-22] MEDS: QUEtiapine FUMARATE 100 MG TABLET (FP) PO PRN (21:15)
[2022-12-22] MEDS: MELATONIN 5 MG TABLETS PO SCH (21:16)
[2022-12-22] MEDS: IBUPROFEN 600 MG TABLET (FP) PO PRN (22:46)
[2022-12-23] MEDS: LEVOTHYROXINE NA 100 MCG TABLET (FP) PO SCH (06:49)
[2022-12-23] MEDS: BRIMONIDINE TARTRATE 0.2% OPHTHALMIC 5 ML BOTTLE OU SCH ×3 (06:49→21:34)
[2022-12-23] MEDS: PARoxetine HCL 20 MG TABLET PO SCH (09:38)
[2022-12-23] MEDS: ASPIRIN 81 MG CHEWABLE TABLETS PO SCH (09:38)
[2022-12-23] MEDS: PANTOPRAZOLE 20 MG TABLET PO SCH (09:38)
[2022-12-23] MEDS: METOPROLOL TARTRATE 25 MG TABLET (FP) PO SCH ×2 (09:38→21:33)
[2022-12-23] MEDS: MULTIVITAMINS (DAILY MVI) TABLET (FP) PO SCH (09:38)
[2022-12-23] MEDS: GABAPENTIN 300 MG CAPSULE PO SCH ×2 (09:38→21:33)
[2022-12-23] MEDS: BUPRENORPHINE/NALOXONE 4 MG/1 MG FILM PACKET SL SCH ×2 (09:39→21:36)
[2022-12-23] MEDS: TOLNAFTATE 1% CREAM 15 GM TUBE TP SCH ×2 (09:39→21:33)
[2022-12-23] MEDS: hydrOXYzine PAMOATE 25 MG CAPSULE (FP) PO PRN ×2 (09:41→21:33)
[2022-12-23] MEDS: SIMETHICONE 80 MG TAB.CHEW (FP) PO PRN ×2 (09:42→20:23)
[2022-12-23] MEDS: NICOTINE POLACRILEX 4 MG GUM BUC PRN ×4 (09:44→21:48)
[2022-12-23] MEDS: IBUPROFEN 400 MG TABLET (FP) PO PRN (20:23)
[2022-12-23] MEDS: MELATONIN 5 MG TABLETS PO SCH (21:34)
[2022-12-23] MEDS: THIAMINE HCL 100 MG TABLET (FP) PO SCH (21:35)
[2022-12-24] MEDS: LEVOTHYROXINE NA 100 MCG TABLET (FP) PO SCH (06:54)
[2022-12-24] MEDS: BRIMONIDINE TARTRATE 0.2% OPHTHALMIC 5 ML BOTTLE OU SCH ×3 (06:55→21:15)
[2022-12-24] MEDS: NICOTINE POLACRILEX 4 MG GUM BUC PRN ×4 (08:33→22:02)
[2022-12-24] MEDS: METOPROLOL TARTRATE 25 MG TABLET (FP) PO SCH ×2 (09:38→21:15)
[2022-12-24] MEDS: GABAPENTIN 300 MG CAPSULE PO SCH ×2 (09:38→21:15)
[2022-12-24] MEDS: PARoxetine HCL 20 MG TABLET PO SCH (09:38)
[2022-12-24] MEDS: ASPIRIN 81 MG CHEWABLE TABLETS PO SCH (09:38)
[2022-12-24] MEDS: PANTOPRAZOLE 20 MG TABLET PO SCH (09:38)
[2022-12-24] MEDS: MULTIVITAMINS (DAILY MVI) TABLET (FP) PO SCH (09:38)
[2022-12-24] MEDS: BUPRENORPHINE/NALOXONE 4 MG/1 MG FILM PACKET SL SCH ×2 (09:39→21:16)
[2022-12-24] MEDS: hydrOXYzine PAMOATE 25 MG CAPSULE (FP) PO PRN ×2 (09:40→21:17)
[2022-12-24] MEDS: TOLNAFTATE 1% CREAM 15 GM TUBE TP SCH ×2 (09:40→21:52)
[2022-12-24] MEDS: THIAMINE HCL 100 MG TABLET (FP) PO SCH (21:15)
[2022-12-24] MEDS: MELATONIN 5 MG TABLETS PO SCH (21:15)
[2022-12-24] MEDS: IBUPROFEN 400 MG TABLET (FP) PO PRN (22:12)
[2022-12-25] MEDS: BRIMONIDINE TARTRATE 0.2% OPHTHALMIC 5 ML BOTTLE OU SCH ×3 (06:38→21:16)
[2022-12-25] MEDS: LEVOTHYROXINE NA 100 MCG TABLET (FP) PO SCH (06:38)
[2022-12-25] MEDS: NICOTINE POLACRILEX 4 MG GUM BUC PRN ×5 (06:39→20:44)
[2022-12-25] MEDS: PANTOPRAZOLE 20 MG TABLET PO SCH (09:36)
[2022-12-25] MEDS: GABAPENTIN 300 MG CAPSULE PO SCH ×2 (09:36→21:17)
[2022-12-25] MEDS: ASPIRIN 81 MG CHEWABLE TABLETS PO SCH (09:36)
[2022-12-25] MEDS: PARoxetine HCL 20 MG TABLET PO SCH (09:37)
[2022-12-25] MEDS: MULTIVITAMINS (DAILY MVI) TABLET (FP) PO SCH (09:37)
[2022-12-25] MEDS: METOPROLOL TARTRATE 25 MG TABLET (FP) PO SCH ×2 (09:37→21:17)
[2022-12-25] MEDS: TOLNAFTATE 1% CREAM 15 GM TUBE TP SCH ×2 (09:37→21:17)
[2022-12-25] MEDS: BUPRENORPHINE/NALOXONE 4 MG/1 MG FILM PACKET SL SCH ×2 (09:37→21:17)
[2022-12-25] MEDS: hydrOXYzine PAMOATE 25 MG CAPSULE (FP) PO PRN ×2 (10:29→21:19)
[2022-12-25] MEDS: BACITRACIN 0.9 GM PACKET TP PRN (10:36)
[2022-12-25] MEDS ORDERED: FLU VACC QS2022-23(6MOS UP)/PF 60 MCG/0.5 ML SYRINGE IM ONE (12:00)
[2022-12-25] MEDS: THIAMINE HCL 100 MG TABLET (FP) PO SCH (21:17)
[2022-12-25] MEDS: MELATONIN 5 MG TABLETS PO SCH (21:17)
[2022-12-25] MEDS: QUEtiapine FUMARATE 100 MG TABLET (FP) PO PRN (21:19)
[2022-12-25] MEDS: SIMETHICONE 80 MG TAB.CHEW (FP) PO PRN (23:19)
[2022-12-25] MEDS: IBUPROFEN 600 MG TABLET (FP) PO PRN (23:19)
[2022-12-26] MEDS: MAG HYDROX/AL HYDROX/SIMETH 30 ML UNIT-DOSE CUP PO PRN (00:12)
[2022-12-26] MEDS: BRIMONIDINE TARTRATE 0.2% OPHTHALMIC 5 ML BOTTLE OU SCH ×3 (07:27→21:36)
[2022-12-26] MEDS: LEVOTHYROXINE NA 100 MCG TABLET (FP) PO SCH (07:28)
[2022-12-26] MEDS: BUPRENORPHINE/NALOXONE 4 MG/1 MG FILM PACKET SL SCH ×2 (10:27→21:21)
[2022-12-26] MEDS: PARoxetine HCL 20 MG TABLET PO SCH (10:28)
[2022-12-26] MEDS: METOPROLOL TARTRATE 25 MG TABLET (FP) PO SCH ×2 (10:28→21:36)
[2022-12-26] MEDS: TOLNAFTATE 1% CREAM 15 GM TUBE TP SCH ×2 (10:28→21:36)
[2022-12-26] MEDS: GABAPENTIN 300 MG CAPSULE PO SCH ×2 (10:28→21:16)
[2022-12-26] MEDS: ASPIRIN 81 MG CHEWABLE TABLETS PO SCH (10:28)
[2022-12-26] MEDS: PANTOPRAZOLE 20 MG TABLET PO SCH (10:28)
[2022-12-26] MEDS: MULTIVITAMINS (DAILY MVI) TABLET (FP) PO SCH (10:30)
[2022-12-26] MEDS: NICOTINE POLACRILEX 4 MG GUM BUC PRN ×4 (10:31→21:25)
[2022-12-26] MEDS: hydrOXYzine PAMOATE 25 MG CAPSULE (FP) PO PRN ×2 (10:32→21:21)
[2022-12-26] MEDS: BACITRACIN 0.9 GM PACKET TP PRN (12:04)
[2022-12-26] MEDS: THIAMINE HCL 100 MG TABLET (FP) PO SCH (21:16)
[2022-12-26] MEDS: MELATONIN 5 MG TABLETS PO SCH (21:16)
[2022-12-26] MEDS: QUEtiapine FUMARATE 100 MG TABLET (FP) PO PRN (21:21)
[2022-12-26] MEDS: IBUPROFEN 400 MG TABLET (FP) PO PRN (22:27)
[2022-12-27] MEDS: LEVOTHYROXINE NA 100 MCG TABLET (FP) PO SCH (06:58)
[2022-12-27] MEDS: BRIMONIDINE TARTRATE 0.2% OPHTHALMIC 5 ML BOTTLE OU SCH ×3 (06:58→21:43)
[2022-12-27] MEDS: NICOTINE POLACRILEX 4 MG GUM BUC PRN ×5 (07:00→22:23)
[2022-12-27] MEDS: IBUPROFEN 400 MG TABLET (FP) PO PRN ×2 (07:01→19:20)
[2022-12-27] MEDS: METOPROLOL TARTRATE 25 MG TABLET (FP) PO SCH ×2 (09:44→21:43)
[2022-12-27] MEDS: MULTIVITAMINS (DAILY MVI) TABLET (FP) PO SCH (09:45)
[2022-12-27] MEDS: PARoxetine HCL 20 MG TABLET PO SCH (09:45)
[2022-12-27] MEDS: ASPIRIN 81 MG CHEWABLE TABLETS PO SCH (09:45)
[2022-12-27] MEDS: GABAPENTIN 300 MG CAPSULE PO SCH ×2 (09:46→21:43)
[2022-12-27] MEDS: TOLNAFTATE 1% CREAM 15 GM TUBE TP SCH ×2 (09:47→21:43)
[2022-12-27] MEDS: PANTOPRAZOLE 20 MG TABLET PO SCH (09:47)
[2022-12-27] MEDS: BUPRENORPHINE/NALOXONE 4 MG/1 MG FILM PACKET SL SCH ×2 (09:47→21:44)
[2022-12-27] MEDS: BACITRACIN 0.9 GM PACKET TP PRN (12:04)
[2022-12-27] MEDS: HYDROCORTISONE 1% TOPICAL CREAM 30 GM TUBE TP PRN ×2 (12:04→21:43)
[2022-12-27] MEDS: MELATONIN 5 MG TABLETS PO SCH (21:43)
[2022-12-27] MEDS: THIAMINE HCL 100 MG TABLET (FP) PO SCH (21:43)
[2022-12-27] MEDS: hydrOXYzine PAMOATE 25 MG CAPSULE (FP) PO PRN (21:43)
[2022-12-27] MEDS: QUEtiapine FUMARATE 100 MG TABLET (FP) PO PRN (21:43)
[2022-12-27] MEDS: ALBUTEROL SO4 HFA INHALER IH PRN (23:11)
[2022-12-28] MEDS: BRIMONIDINE TARTRATE 0.2% OPHTHALMIC 5 ML BOTTLE OU SCH ×3 (06:56→21:15)
[2022-12-28] MEDS: LEVOTHYROXINE NA 100 MCG TABLET (FP) PO SCH (06:56)
[2022-12-28] MEDS: METOPROLOL TARTRATE 25 MG TABLET (FP) PO SCH ×2 (10:00→21:16)
[2022-12-28] MEDS: ASPIRIN 81 MG CHEWABLE TABLETS PO SCH (10:00)
[2022-12-28] MEDS: GABAPENTIN 300 MG CAPSULE PO SCH ×2 (10:00→21:15)
[2022-12-28] MEDS: MULTIVITAMINS (DAILY MVI) TABLET (FP) PO SCH (10:00)
[2022-12-28] MEDS: PANTOPRAZOLE 20 MG TABLET PO SCH (10:00)
[2022-12-28] MEDS: PARoxetine HCL 20 MG TABLET PO SCH (10:00)
[2022-12-28] MEDS: BUPRENORPHINE/NALOXONE 4 MG/1 MG FILM PACKET SL SCH ×2 (10:02→21:19)
[2022-12-28] MEDS: TOLNAFTATE 1% CREAM 15 GM TUBE TP SCH ×2 (10:06→21:45)
[2022-12-28] MEDS: NICOTINE POLACRILEX 4 MG GUM BUC PRN ×3 (11:55→22:19)
[2022-12-28] MEDS: BACITRACIN 0.9 GM PACKET TP PRN (11:55)
[2022-12-28] MEDS: hydrOXYzine PAMOATE 25 MG CAPSULE (FP) PO PRN ×2 (11:55→21:15)
[2022-12-28] MEDS: QUEtiapine FUMARATE 100 MG TABLET (FP) PO PRN (21:15)
[2022-12-28] MEDS: THIAMINE HCL 100 MG TABLET (FP) PO SCH (21:15)
[2022-12-28] MEDS: MELATONIN 5 MG TABLETS PO SCH (21:16)
[2022-12-28] MEDS: IBUPROFEN 400 MG TABLET (FP) PO PRN (22:21)
[2022-12-29] MEDS: NICOTINE POLACRILEX 4 MG GUM BUC PRN ×4 (06:21→21:38)
[2022-12-29] MEDS: BRIMONIDINE TARTRATE 0.2% OPHTHALMIC 5 ML BOTTLE OU SCH ×3 (06:22→21:18)
[2022-12-29] MEDS: LEVOTHYROXINE NA 100 MCG TABLET (FP) PO SCH (06:22)
[2022-12-29] MEDS: PARoxetine HCL 20 MG TABLET PO SCH (09:57)
[2022-12-29] MEDS: ASPIRIN 81 MG CHEWABLE TABLETS PO SCH (09:57)
[2022-12-29] MEDS: BUPRENORPHINE/NALOXONE 4 MG/1 MG FILM PACKET SL SCH ×2 (09:57→21:23)
[2022-12-29] MEDS: GABAPENTIN 300 MG CAPSULE PO SCH ×2 (09:57→21:18)
[2022-12-29] MEDS: PANTOPRAZOLE 20 MG TABLET PO SCH (09:57)
[2022-12-29] MEDS: TOLNAFTATE 1% CREAM 15 GM TUBE TP SCH ×2 (09:58→21:24)
[2022-12-29] MEDS: MULTIVITAMINS (DAILY MVI) TABLET (FP) PO SCH (09:58)
[2022-12-29] MEDS: METOPROLOL TARTRATE 25 MG TABLET (FP) PO SCH ×2 (09:58→21:18)
[2022-12-29] MEDS: hydrOXYzine PAMOATE 25 MG CAPSULE (FP) PO PRN ×2 (14:46→21:18)
[2022-12-29] MEDS: QUEtiapine FUMARATE 100 MG TABLET (FP) PO PRN (21:18)
[2022-12-29] MEDS: THIAMINE HCL 100 MG TABLET (FP) PO SCH (21:18)
[2022-12-29] MEDS: MELATONIN 5 MG TABLETS PO SCH (21:19)
[2022-12-29] MEDS: COLLOIDAL OATMEAL 1 BAR EACH TP PRN (22:08)
[2022-12-29] MEDS: IBUPROFEN 400 MG TABLET (FP) PO PRN (23:01)
[2022-12-30] MEDS: BRIMONIDINE TARTRATE 0.2% OPHTHALMIC 5 ML BOTTLE OU SCH ×3 (06:02→21:42)
[2022-12-30] MEDS: LEVOTHYROXINE NA 100 MCG TABLET (FP) PO SCH (07:01)
[2022-12-30] MEDS: NICOTINE POLACRILEX 4 MG GUM BUC PRN ×6 (07:04→23:54)
[2022-12-30] MEDS: TOLNAFTATE 1% CREAM 15 GM TUBE TP SCH ×2 (10:22→21:40)
[2022-12-30] MEDS: PARoxetine HCL 20 MG TABLET PO SCH (10:23)
[2022-12-30] MEDS: BUPRENORPHINE/NALOXONE 4 MG/1 MG FILM PACKET SL SCH ×2 (10:23→21:42)
[2022-12-30] MEDS: ASPIRIN 81 MG CHEWABLE TABLETS PO SCH (10:23)
[2022-12-30] MEDS: MULTIVITAMINS (DAILY MVI) TABLET (FP) PO SCH (10:23)
[2022-12-30] MEDS: PANTOPRAZOLE 20 MG TABLET PO SCH (10:23)
[2022-12-30] MEDS: GABAPENTIN 300 MG CAPSULE PO SCH ×2 (10:23→21:39)
[2022-12-30] MEDS: METOPROLOL TARTRATE 25 MG TABLET (FP) PO SCH ×2 (10:23→21:39)
[2022-12-30] MEDS: hydrOXYzine PAMOATE 25 MG CAPSULE (FP) PO PRN (12:38)
[2022-12-30] MEDS: MELATONIN 5 MG TABLETS PO SCH (21:39)
[2022-12-30] MEDS: THIAMINE HCL 100 MG TABLET (FP) PO SCH (21:39)
[2022-12-30] MEDS: QUEtiapine FUMARATE 100 MG TABLET (FP) PO PRN (21:43)
[2022-12-30] MEDS: IBUPROFEN 600 MG TABLET (FP) PO PRN (21:44)
[2022-12-30] MEDS: ACETAMINOPHEN 325 MG TABLET (FP) PO PRN (23:35)
[2022-12-31] MEDS: LEVOTHYROXINE NA 100 MCG TABLET (FP) PO SCH (07:00)
[2022-12-31] MEDS: NICOTINE POLACRILEX 4 MG GUM BUC PRN ×5 (07:02→22:51)
[2022-12-31] MEDS: BRIMONIDINE TARTRATE 0.2% OPHTHALMIC 5 ML BOTTLE OU SCH ×3 (07:02→21:35)
[2022-12-31] MEDS: ASPIRIN 81 MG CHEWABLE TABLETS PO SCH (10:40)
[2022-12-31] MEDS: BUPRENORPHINE/NALOXONE 4 MG/1 MG FILM PACKET SL SCH ×2 (10:40→21:37)
[2022-12-31] MEDS: PANTOPRAZOLE 20 MG TABLET PO SCH (10:40)
[2022-12-31] MEDS: METOPROLOL TARTRATE 25 MG TABLET (FP) PO SCH ×2 (10:40→21:37)
[2022-12-31] MEDS: GABAPENTIN 300 MG CAPSULE PO SCH ×2 (10:40→21:36)
[2022-12-31] MEDS: MULTIVITAMINS (DAILY MVI) TABLET (FP) PO SCH (10:40)
[2022-12-31] MEDS: TOLNAFTATE 1% CREAM 15 GM TUBE TP SCH ×2 (10:40→21:37)
[2022-12-31] MEDS: PARoxetine HCL 20 MG TABLET PO SCH (10:40)
[2022-12-31] MEDS: hydrOXYzine PAMOATE 25 MG CAPSULE (FP) PO PRN ×2 (12:11→21:38)
[2022-12-31] MEDS: BACITRACIN 0.9 GM PACKET TP PRN (13:30)
[2022-12-31] MEDS: QUEtiapine FUMARATE 100 MG TABLET (FP) PO PRN (21:36)
[2022-12-31] MEDS: MELATONIN 5 MG TABLETS PO SCH (21:36)
[2022-12-31] MEDS: THIAMINE HCL 100 MG TABLET (FP) PO SCH (21:36)
[2022-12-31] MEDS: IBUPROFEN 600 MG TABLET (FP) PO PRN (21:40)
[2023-01-01] MEDS: LEVOTHYROXINE NA 100 MCG TABLET (FP) PO SCH (06:47)
[2023-01-01] MEDS: BRIMONIDINE TARTRATE 0.2% OPHTHALMIC 5 ML BOTTLE OU SCH ×3 (06:47→21:32)
[2023-01-01] MEDS: NICOTINE POLACRILEX 4 MG GUM BUC PRN ×4 (06:48→17:07)
[2023-01-01] MEDS: PARoxetine HCL 20 MG TABLET PO SCH (10:31)
[2023-01-01] MEDS: PANTOPRAZOLE 20 MG TABLET PO SCH (10:31)
[2023-01-01] MEDS: BUPRENORPHINE/NALOXONE 4 MG/1 MG FILM PACKET SL SCH ×2 (10:31→21:33)
[2023-01-01] MEDS: ASPIRIN 81 MG CHEWABLE TABLETS PO SCH (10:31)
[2023-01-01] MEDS: MULTIVITAMINS (DAILY MVI) TABLET (FP) PO SCH (10:31)
[2023-01-01] MEDS: METOPROLOL TARTRATE 25 MG TABLET (FP) PO SCH ×2 (10:31→21:33)
[2023-01-01] MEDS: GABAPENTIN 300 MG CAPSULE PO SCH ×2 (10:31→21:33)
[2023-01-01] MEDS: TOLNAFTATE 1% CREAM 15 GM TUBE TP SCH ×2 (10:32→21:34)
[2023-01-01] MEDS: hydrOXYzine PAMOATE 25 MG CAPSULE (FP) PO PRN ×2 (10:33→21:33)
[2023-01-01] MEDS: IBUPROFEN 400 MG TABLET (FP) PO PRN (17:05)
[2023-01-01] MEDS: QUEtiapine FUMARATE 100 MG TABLET (FP) PO PRN (21:33)
[2023-01-01] MEDS: THIAMINE HCL 100 MG TABLET (FP) PO SCH (21:33)
[2023-01-01] MEDS: MELATONIN 5 MG TABLETS PO SCH (21:35)
[2023-01-01] MEDS: ACETAMINOPHEN 325 MG TABLET (FP) PO PRN (23:37)
[2023-01-02] MEDS: BRIMONIDINE TARTRATE 0.2% OPHTHALMIC 5 ML BOTTLE OU SCH ×3 (06:52→21:29)
[2023-01-02] MEDS: LEVOTHYROXINE NA 100 MCG TABLET (FP) PO SCH (06:52)
[2023-01-02] MEDS: NICOTINE POLACRILEX 4 MG GUM BUC PRN ×4 (06:53→21:39)
[2023-01-02] MEDS: GABAPENTIN 300 MG CAPSULE PO SCH ×2 (09:50→21:29)
[2023-01-02] MEDS: MULTIVITAMINS (DAILY MVI) TABLET (FP) PO SCH (09:50)
[2023-01-02] MEDS: METOPROLOL TARTRATE 25 MG TABLET (FP) PO SCH ×2 (09:50→21:29)
[2023-01-02] MEDS: PANTOPRAZOLE 20 MG TABLET PO SCH (09:50)
[2023-01-02] MEDS: PARoxetine HCL 20 MG TABLET PO SCH (09:50)
[2023-01-02] MEDS: ASPIRIN 81 MG CHEWABLE TABLETS PO SCH (09:50)
[2023-01-02] MEDS: BUPRENORPHINE/NALOXONE 4 MG/1 MG FILM PACKET SL SCH ×2 (09:51→21:30)
[2023-01-02] MEDS: TOLNAFTATE 1% CREAM 15 GM TUBE TP SCH ×2 (09:51→21:31)
[2023-01-02] MEDS: hydrOXYzine PAMOATE 25 MG CAPSULE (FP) PO PRN ×2 (12:35→21:30)
[2023-01-02] MEDS: METHOCARBAMOL 500 MG TABLET PO PRN ×2 (14:14→23:15)
[2023-01-02] MEDS: QUEtiapine FUMARATE 100 MG TABLET (FP) PO PRN (21:29)
[2023-01-02] MEDS: THIAMINE HCL 100 MG TABLET (FP) PO SCH (21:30)
[2023-01-02] MEDS: MELATONIN 5 MG TABLETS PO SCH (21:31)
[2023-01-02] MEDS: HYDROCORTISONE 1% TOPICAL CREAM 30 GM TUBE TP PRN (21:31)
[2023-01-02] MEDS: BACITRACIN 0.9 GM PACKET TP PRN (22:31)
[2023-01-03] MEDS: BRIMONIDINE TARTRATE 0.2% OPHTHALMIC 5 ML BOTTLE OU SCH ×3 (07:00→21:43)
[2023-01-03] MEDS: LEVOTHYROXINE NA 100 MCG TABLET (FP) PO SCH (07:01)
[2023-01-03] MEDS: NICOTINE POLACRILEX 4 MG GUM BUC PRN ×5 (07:02→21:48)
[2023-01-03] MEDS: PARoxetine HCL 20 MG TABLET PO SCH (09:48)
[2023-01-03] MEDS: hydrOXYzine PAMOATE 25 MG CAPSULE (FP) PO PRN ×2 (09:48→21:41)
[2023-01-03] MEDS: PANTOPRAZOLE 20 MG TABLET PO SCH (09:48)
[2023-01-03] MEDS: MULTIVITAMINS (DAILY MVI) TABLET (FP) PO SCH (09:48)
[2023-01-03] MEDS: GABAPENTIN 300 MG CAPSULE PO SCH ×2 (09:48→21:41)
[2023-01-03] MEDS: ASPIRIN 81 MG CHEWABLE TABLETS PO SCH (09:48)
[2023-01-03] MEDS: METOPROLOL TARTRATE 25 MG TABLET (FP) PO SCH ×2 (09:49→21:41)
[2023-01-03] MEDS: TOLNAFTATE 1% CREAM 15 GM TUBE TP SCH ×2 (09:50→21:42)
[2023-01-03] MEDS: BUPRENORPHINE/NALOXONE 4 MG/1 MG FILM PACKET SL SCH ×2 (09:50→21:42)
[2023-01-03] MEDS: HYDROCORTISONE 1% TOPICAL CREAM 30 GM TUBE TP PRN (09:51)
[2023-01-03] MEDS: METHOCARBAMOL 500 MG TABLET PO PRN ×2 (10:58→21:41)
[2023-01-03] MEDS: OXYBUTYNIN CHLORIDE 5 MG TABLET PO PRN (11:55)
[2023-01-03] MEDS: QUEtiapine FUMARATE 100 MG TABLET (FP) PO PRN (21:41)
[2023-01-03] MEDS: THIAMINE HCL 100 MG TABLET (FP) PO SCH (21:42)
[2023-01-03] MEDS: MELATONIN 5 MG TABLETS PO SCH (21:44)
[2023-01-03] MEDS: BACITRACIN 0.9 GM PACKET TP PRN (21:49)
[2023-01-04] MEDS: IBUPROFEN 600 MG TABLET (FP) PO PRN (01:45)
[2023-01-04] MEDS: LEVOTHYROXINE NA 100 MCG TABLET (FP) PO SCH (06:42)
[2023-01-04] MEDS: BRIMONIDINE TARTRATE 0.2% OPHTHALMIC 5 ML BOTTLE OU SCH ×3 (06:42→21:35)
[2023-01-04] MEDS: NICOTINE POLACRILEX 4 MG GUM BUC PRN ×6 (06:44→23:55)
[2023-01-04] MEDS: ASPIRIN 81 MG CHEWABLE TABLETS PO SCH (10:02)
[2023-01-04] MEDS: PARoxetine HCL 20 MG TABLET PO SCH (10:03)
[2023-01-04] MEDS: METOPROLOL TARTRATE 25 MG TABLET (FP) PO SCH ×2 (10:03→21:35)
[2023-01-04] MEDS: BUPRENORPHINE/NALOXONE 4 MG/1 MG FILM PACKET SL SCH ×2 (10:03→21:35)
[2023-01-04] MEDS: PANTOPRAZOLE 20 MG TABLET PO SCH (10:03)
[2023-01-04] MEDS: GABAPENTIN 300 MG CAPSULE PO SCH ×2 (10:03→21:35)
[2023-01-04] MEDS: TOLNAFTATE 1% CREAM 15 GM TUBE TP SCH ×2 (10:04→21:36)
[2023-01-04] MEDS: MULTIVITAMINS (DAILY MVI) TABLET (FP) PO SCH (10:04)
[2023-01-04] MEDS: hydrOXYzine PAMOATE 25 MG CAPSULE (FP) PO PRN ×2 (12:02→21:37)
[2023-01-04] MEDS: OXYBUTYNIN CHLORIDE 5 MG TABLET PO PRN (12:39)
[2023-01-04] MEDS: MELATONIN 5 MG TABLETS PO SCH (21:34)
[2023-01-04] MEDS: QUEtiapine FUMARATE 100 MG TABLET (FP) PO PRN (21:35)
[2023-01-04] MEDS: THIAMINE HCL 100 MG TABLET (FP) PO SCH (21:35)
[2023-01-04] MEDS: BACITRACIN 0.9 GM PACKET TP PRN (21:35)
[2023-01-04] MEDS: METHOCARBAMOL 500 MG TABLET PO PRN (21:35)
[2023-01-05] MEDS: LEVOTHYROXINE NA 100 MCG TABLET (FP) PO SCH (06:54)
[2023-01-05] MEDS: BRIMONIDINE TARTRATE 0.2% OPHTHALMIC 5 ML BOTTLE OU SCH ×3 (06:54→21:14)
[2023-01-05] MEDS: NICOTINE POLACRILEX 4 MG GUM BUC PRN ×4 (06:57→17:22)
[2023-01-05] MEDS: MULTIVITAMINS (DAILY MVI) TABLET (FP) PO SCH (10:22)
[2023-01-05] MEDS: BUPRENORPHINE/NALOXONE 4 MG/1 MG FILM PACKET SL SCH ×2 (10:22→21:14)
[2023-01-05] MEDS: PARoxetine HCL 20 MG TABLET PO SCH (10:23)
[2023-01-05] MEDS: TOLNAFTATE 1% CREAM 15 GM TUBE TP SCH ×2 (10:23→21:27)
[2023-01-05] MEDS: METOPROLOL TARTRATE 25 MG TABLET (FP) PO SCH ×2 (10:23→21:14)
[2023-01-05] MEDS: GABAPENTIN 300 MG CAPSULE PO SCH ×2 (10:23→21:14)
[2023-01-05] MEDS: PANTOPRAZOLE 20 MG TABLET PO SCH (10:23)
[2023-01-05] MEDS: ASPIRIN 81 MG CHEWABLE TABLETS PO SCH (10:23)
[2023-01-05] MEDS: hydrOXYzine PAMOATE 25 MG CAPSULE (FP) PO PRN ×2 (11:18→21:14)
[2023-01-05] MEDS: OXYBUTYNIN CHLORIDE 5 MG TABLET PO PRN (11:18)
[2023-01-05] MEDS: HYDROCORTISONE 1% TOPICAL CREAM 30 GM TUBE TP PRN ×2 (11:19→21:14)
[2023-01-05] MEDS: BACITRACIN 0.9 GM PACKET TP PRN ×2 (11:21→21:14)
[2023-01-05] MEDS: THIAMINE HCL 100 MG TABLET (FP) PO SCH (21:14)
[2023-01-05] MEDS: MELATONIN 5 MG TABLETS PO SCH (21:14)
[2023-01-05] MEDS: QUEtiapine FUMARATE 100 MG TABLET (FP) PO PRN (21:14)
[2023-01-05] MEDS: COLLOIDAL OATMEAL 1 BAR EACH TP PRN (22:15)
[2023-01-06] MEDS: IBUPROFEN 400 MG TABLET (FP) PO PRN (00:18)
[2023-01-06] MEDS: NICOTINE POLACRILEX 4 MG GUM BUC PRN ×5 (00:19→23:57)
[2023-01-06] MEDS: LEVOTHYROXINE NA 100 MCG TABLET (FP) PO SCH (07:28)
[2023-01-06] MEDS: BRIMONIDINE TARTRATE 0.2% OPHTHALMIC 5 ML BOTTLE OU SCH ×3 (07:28→21:29)
[2023-01-06] MEDS: hydrOXYzine PAMOATE 25 MG CAPSULE (FP) PO PRN ×2 (10:11→21:27)
[2023-01-06] MEDS: PARoxetine HCL 20 MG TABLET PO SCH (10:13)
[2023-01-06] MEDS: ASPIRIN 81 MG CHEWABLE TABLETS PO SCH (10:13)
[2023-01-06] MEDS: METOPROLOL TARTRATE 25 MG TABLET (FP) PO SCH ×2 (10:13→21:26)
[2023-01-06] MEDS: OXYBUTYNIN CHLORIDE 5 MG TABLET PO PRN (10:13)
[2023-01-06] MEDS: GABAPENTIN 300 MG CAPSULE PO SCH ×2 (10:13→21:26)
[2023-01-06] MEDS: PANTOPRAZOLE 20 MG TABLET PO SCH (10:13)
[2023-01-06] MEDS: TOLNAFTATE 1% CREAM 15 GM TUBE TP SCH ×2 (10:14→22:35)
[2023-01-06] MEDS: BUPRENORPHINE/NALOXONE 4 MG/1 MG FILM PACKET SL SCH ×2 (10:14→21:26)
[2023-01-06] MEDS: MULTIVITAMINS (DAILY MVI) TABLET (FP) PO SCH (10:15)
[2023-01-06] MEDS: MELATONIN 5 MG TABLETS PO SCH (21:26)
[2023-01-06] MEDS: THIAMINE HCL 100 MG TABLET (FP) PO SCH (21:26)
[2023-01-06] MEDS: QUEtiapine FUMARATE 100 MG TABLET (FP) PO PRN (21:26)
[2023-01-06 22:12] VITALS: RESP 18
[2023-01-07] MEDS: BRIMONIDINE TARTRATE 0.2% OPHTHALMIC 5 ML BOTTLE OU SCH ×3 (07:11→21:29)
[2023-01-07] MEDS: LEVOTHYROXINE NA 100 MCG TABLET (FP) PO SCH (07:11)
[2023-01-07] MEDS: MULTIVITAMINS (DAILY MVI) TABLET (FP) PO SCH (09:53)
[2023-01-07] MEDS: BUPRENORPHINE/NALOXONE 4 MG/1 MG FILM PACKET SL SCH ×2 (09:53→21:29)
[2023-01-07] MEDS: METOPROLOL TARTRATE 25 MG TABLET (FP) PO SCH ×3 (09:53→21:47)
[2023-01-07] MEDS: GABAPENTIN 300 MG CAPSULE PO SCH ×2 (09:53→21:30)
[2023-01-07] MEDS: PARoxetine HCL 20 MG TABLET PO SCH (09:53)
[2023-01-07] MEDS: PANTOPRAZOLE 20 MG TABLET PO SCH (09:53)
[2023-01-07] MEDS: ASPIRIN 81 MG CHEWABLE TABLETS PO SCH (09:54)
[2023-01-07] MEDS: hydrOXYzine PAMOATE 25 MG CAPSULE (FP) PO PRN ×2 (09:55→21:31)
[2023-01-07] MEDS: NICOTINE POLACRILEX 4 MG GUM BUC PRN ×5 (09:55→21:33)
[2023-01-07] MEDS: TOLNAFTATE 1% CREAM 15 GM TUBE TP SCH ×2 (09:58→21:37)
[2023-01-07] MEDS: OXYBUTYNIN CHLORIDE 5 MG TABLET PO PRN (14:19)
[2023-01-07] MEDS: ALBUTEROL SO4 HFA INHALER IH PRN (20:09)
[2023-01-07] MEDS: BACITRACIN 0.9 GM PACKET TP PRN (21:29)
[2023-01-07] MEDS: METHOCARBAMOL 500 MG TABLET PO PRN (21:30)
[2023-01-07] MEDS: MELATONIN 5 MG TABLETS PO SCH (21:30)
[2023-01-07] MEDS: THIAMINE HCL 100 MG TABLET (FP) PO SCH (21:30)
[2023-01-07] MEDS: QUEtiapine FUMARATE 100 MG TABLET (FP) PO PRN (21:30)
[2023-01-08] MEDS: NICOTINE POLACRILEX 4 MG GUM BUC PRN ×3 (00:14→09:30)
[2023-01-08] MEDS: LEVOTHYROXINE NA 100 MCG TABLET (FP) PO SCH (06:45)
[2023-01-08] MEDS: BRIMONIDINE TARTRATE 0.2% OPHTHALMIC 5 ML BOTTLE OU SCH (06:45)
[2023-01-08 07:41] VITALS: TEMP 97.6
[2023-01-08 09:28] VITALS: BP 139/91; PULSE 72
[2023-01-08] MEDS: ASPIRIN 81 MG CHEWABLE TABLETS PO SCH (09:28)
[2023-01-08] MEDS: OXYBUTYNIN CHLORIDE 5 MG TABLET PO PRN (09:28)
[2023-01-08] MEDS: PANTOPRAZOLE 20 MG TABLET PO SCH (09:28)
[2023-01-08] MEDS: GABAPENTIN 300 MG CAPSULE PO SCH (09:28)
[2023-01-08] MEDS: MULTIVITAMINS (DAILY MVI) TABLET (FP) PO SCH (09:28)
[2023-01-08] MEDS: BUPRENORPHINE/NALOXONE 4 MG/1 MG FILM PACKET SL SCH (09:28)
[2023-01-08] MEDS: METOPROLOL TARTRATE 25 MG TABLET (FP) PO SCH (09:28)
[2023-01-08] MEDS: TOLNAFTATE 1% CREAM 15 GM TUBE TP SCH (09:28)
[2023-01-08] MEDS: PARoxetine HCL 20 MG TABLET PO SCH (09:28)
[2023-01-08] MEDS: hydrOXYzine PAMOATE 25 MG CAPSULE (FP) PO PRN (09:30)
== END 2023-01-08 11:18 | disposition home or self-care (01) | DRG 772 ==
LOC: YASAS 14:01 → Y5N 14:02
PROVIDERS: ADMIT Allergy & Immunology; ATTEND Psychiatry & Neurology Pain Medicine
PROC: HZ42ZZZ Group Counseling for Substance Abuse Treatment, Cognitive-Behavioral (ICD-10-PCS; principal; 2022-12-11)
DX: F11.20 Opioid dependence, uncomplicated (principal); F10.20 Alcohol dependence, uncomplicated; F13.20 Sedative, hypnotic or anxiolytic dependence, uncomplicated; B35.1 Tinea unguium; G40.909 Epilepsy, unspecified, not intractable, without status epilepticus; E03.9 Hypothyroidism, unspecified; I10 Essential (primary) hypertension; J45.909 Unspecified asthma, uncomplicated; K21.9 Gastro-esophageal reflux disease without esophagitis; L30.9 Dermatitis, unspecified; M41.9 Scoliosis, unspecified; K52.9 Noninfective gastroenteritis and colitis, unspecified; Z88.1 Allergy status to other antibiotic agents; Z88.8 Allergy status to other drugs, medicaments and biological substances
CPT/HCPCS: 36415; 81003; 82747; 82962; 85014; 86803; 87086; 87389; 87491; 87522; 87591; 87661; G0008; J0475; Q2036

== ENCOUNTER 2023-03-06 16:58 | Inpatient (IN) | payer OTHER ==
[2023-03-06 17:57] VITALS: BMI 20.7
[2023-03-06] MEDS ORDERED: DICYCLOMINE HCL 10 MG CAPSULE PO PRN (19:10)
[2023-03-06] MEDS ORDERED: NICOTINE POLACRILEX 2 MG GUM BUC PRN (19:10)
[2023-03-06] MEDS ORDERED: BENZOCAINE/MENTHOL (CHLORASEPTIC ) LOZENGE MM PRN (19:10)
[2023-03-06] MEDS ORDERED: IBUPROFEN 600 MG TABLET (FP) PO PRN (19:10)
[2023-03-06] MEDS ORDERED: guaiFENesin 600 MG TABLET.ER (FP) PO PRN (19:10)
[2023-03-06] MEDS ORDERED: BISMUTH SUBSALICYLATE 524 MG/30 ML PO PRN (19:10)
[2023-03-06] MEDS ORDERED: BENZONATATE 200 MG CAPSULE PO PRN (19:10)
[2023-03-06] MEDS ORDERED: MAGNESIUM HYDROX 2400MG/30ML ORAL SUSPENSION 30 ML CUP PO PRN (19:10)
[2023-03-06] MEDS ORDERED: NALOXONE HCL 0.4 MG/ML VIAL IM PRN (19:10)
[2023-03-06] MEDS ORDERED: LOPERAMIDE HCL 2 MG CAPSULE PO PRN (19:10)
[2023-03-06] MEDS ORDERED: NALOXONE HCL (KLOXXADO) 8 MG SPRAY NS PRN (19:10)
[2023-03-06] MEDS ORDERED: IBUPROFEN 400 MG TABLET (FP) PO PRN (19:10)
[2023-03-06] MEDS ORDERED: MAG HYDROX/AL HYDROX/SIMETH 30 ML UNIT-DOSE CUP PO PRN (19:10)
[2023-03-06] MEDS ORDERED: ACETAMINOPHEN 325 MG TABLET (FP) PO PRN (19:10)
[2023-03-06] MEDS ORDERED: METHOCARBAMOL 500 MG TABLET PO PRN (19:10)
[2023-03-06] MEDS ORDERED: hydrOXYzine PAMOATE 25 MG CAPSULE (FP) PO PRN (19:10)
[2023-03-06] MEDS ORDERED: POLYETHYLENE GLYCOL (HEALTHYLAX) 3350 17 GM PACKET PO PRN (19:10)
[2023-03-06] MEDS ORDERED: LORazepam 1 MG TABLET PO PRN (19:10)
[2023-03-06] MEDS ORDERED: ONDANSETRON *ODT* 4 MG TABLET SL PRN (19:10)
[2023-03-06] MEDS ORDERED: MELATONIN 5 MG TABLETS PO SCH (22:00)
[2023-03-06] MEDS ORDERED: LORazepam 2 MG TABLET PO SCH (23:00)
[2023-03-06] MEDS: THIAMINE HCL 100 MG TABLET (FP) PO SCH (23:00)
[2023-03-07] MEDS ORDERED: ALBUTEROL SO4 HFA INHALER IH PRN (08:04)
[2023-03-07] MEDS: LEVOTHYROXINE NA 100 MCG TABLET (FP) PO SCH (08:50)
[2023-03-07] MEDS: PRENATAL VITAMINS W/ FOLIC ACID TABLET (FP) PO SCH (10:50)
[2023-03-07] MEDS: METOPROLOL TARTRATE 25 MG TABLET (FP) PO SCH ×2 (10:50→22:40)
[2023-03-07] MEDS: GABAPENTIN 300 MG CAPSULE PO SCH ×2 (10:50→22:40)
[2023-03-07] MEDS: BRIMONIDINE TARTRATE 0.2% OPHTHALMIC 5 ML BOTTLE OS SCH ×2 (10:50→22:38)
[2023-03-07] MEDS: ASPIRIN 81 MG CHEWABLE TABLETS PO SCH (10:50)
[2023-03-07] MEDS: BUPRENORPHINE/NALOXONE 4 MG/1 MG FILM PACKET SL SCH (12:29)
[2023-03-07] MEDS: LORazepam 1 MG TABLET PO PRN (12:54)
[2023-03-07 14:39] LABS: HEMATOCRIT 32.6 % (32.4-45.2); HEMOGLOBIN 10.4 GM/dL (10.7-15.3); MCH 25.1 pg (25.7-33.7); MCHC 31.8 g/dl (32.0-36.0); MEAN CELL VOLUME 78.9 fl (80-96); MEAN PLT VOLUME 8.2 fl (7.5-11.1); PLATELET COUNT 276 10^3/uL (134-434); RBC 4.13 M/mm3 (3.60-5.2); RDW 20.5 % (11.6-15.6); WHITE BLOOD COUNT 3.2 K/mm3 (4.0-10.0)
[2023-03-07 14:43] LABS: POTASSIUM 3.9 mmol/L (3.5-5.1)
[2023-03-07 14:46] LABS: CALCIUM 8.7 mg/dL (8.5-10.1)
[2023-03-07 14:47] LABS: ALBUMIN 3.3 g/dl (3.4-5.0)
[2023-03-07 14:50] LABS: CREATININE 0.6 mg/dL (0.55-1.3)
[2023-03-07 14:52] LABS: BILIRUBIN,TOTAL 0.3 mg/dL (0.2-1)
[2023-03-07] MEDS: LORazepam 2 MG TABLET PO SCH ×2 (17:47→22:40)
[2023-03-07] MEDS: NICOTINE POLACRILEX 4 MG GUM BUC PRN ×2 (17:51→22:52)
[2023-03-07] MEDS: LATANOPROST 0.005% OPHTH SOLN 2.5ML BOTTLE OS SCH (22:38)
[2023-03-07] MEDS: QUEtiapine FUMARATE 50 MG TABLET PO SCH (22:39)
[2023-03-07] MEDS: THIAMINE HCL 100 MG TABLET (FP) PO SCH (22:40)
[2023-03-08] MEDS: TOLNAFTATE 1% CREAM 15 GM TUBE TP SCH ×3 (00:01→22:20)
[2023-03-08] MEDS ORDERED: LORazepam 1 MG TABLET PO SCH (05:00)
[2023-03-08] MEDS: LORazepam 2 MG TABLET PO SCH ×3 (05:54→17:54)
[2023-03-08] MEDS: LEVOTHYROXINE NA 100 MCG TABLET (FP) PO SCH (06:31)
[2023-03-08] MEDS: NICOTINE POLACRILEX 4 MG GUM BUC PRN ×2 (07:31→20:42)
[2023-03-08] MEDS: PRENATAL VITAMINS W/ FOLIC ACID TABLET (FP) PO SCH (10:34)
[2023-03-08] MEDS: BUPRENORPHINE/NALOXONE 4 MG/1 MG FILM PACKET SL SCH (10:34)
[2023-03-08] MEDS: GABAPENTIN 300 MG CAPSULE PO SCH (10:34)
[2023-03-08] MEDS: BRIMONIDINE TARTRATE 0.2% OPHTHALMIC 5 ML BOTTLE OS SCH ×2 (10:34→22:18)
[2023-03-08] MEDS: METOPROLOL TARTRATE 25 MG TABLET (FP) PO SCH ×2 (10:34→22:19)
[2023-03-08] MEDS: ASPIRIN 81 MG CHEWABLE TABLETS PO SCH (10:34)
[2023-03-08] MEDS ORDERED: LORazepam 2 MG TABLET PO SCH (18:34)
[2023-03-08] MEDS: LORazepam 1 MG TABLET PO SCH ×2 (19:23→22:20)
[2023-03-08] MEDS: LATANOPROST 0.005% OPHTH SOLN 2.5ML BOTTLE OS SCH (22:18)
[2023-03-08] MEDS: GABAPENTIN 100 MG CAPSULE PO SCH (22:19)
[2023-03-08] MEDS: QUEtiapine FUMARATE 50 MG TABLET PO SCH (22:20)
[2023-03-08] MEDS: THIAMINE HCL 100 MG TABLET (FP) PO SCH (22:20)
[2023-03-09] MEDS ORDERED: LORazepam 0.5 MG TABLET PO PRN
[2023-03-09] MEDS: LORazepam 1 MG TABLET PO PRN ×2 (02:41→18:25)
[2023-03-09] MEDS: NICOTINE POLACRILEX 4 MG GUM BUC PRN ×6 (02:42→21:59)
[2023-03-09] MEDS ORDERED: LORazepam 0.5 MG TABLET PO SCH (05:00)
[2023-03-09] MEDS: LORazepam 1 MG TABLET PO SCH ×4 (05:58→22:04)
[2023-03-09] MEDS: LEVOTHYROXINE NA 100 MCG TABLET (FP) PO SCH (07:16)
[2023-03-09] MEDS: BRIMONIDINE TARTRATE 0.2% OPHTHALMIC 5 ML BOTTLE OS SCH ×2 (10:11→22:02)
[2023-03-09] MEDS: ASPIRIN 81 MG CHEWABLE TABLETS PO SCH (10:11)
[2023-03-09] MEDS: TOLNAFTATE 1% CREAM 15 GM TUBE TP SCH ×2 (10:12→22:21)
[2023-03-09] MEDS: PRENATAL VITAMINS W/ FOLIC ACID TABLET (FP) PO SCH (10:12)
[2023-03-09] MEDS: BUPRENORPHINE/NALOXONE 4 MG/1 MG FILM PACKET SL SCH (10:12)
[2023-03-09] MEDS: METOPROLOL TARTRATE 25 MG TABLET (FP) PO SCH ×2 (10:12→22:03)
[2023-03-09] MEDS: GABAPENTIN 100 MG CAPSULE PO SCH (10:12)
[2023-03-09] MEDS: LATANOPROST 0.005% OPHTH SOLN 2.5ML BOTTLE OS SCH (22:02)
[2023-03-09] MEDS: THIAMINE HCL 100 MG TABLET (FP) PO SCH (22:03)
[2023-03-09] MEDS: QUEtiapine FUMARATE 50 MG TABLET PO SCH (22:03)
[2023-03-09] MEDS: GABAPENTIN 300 MG CAPSULE PO SCH (22:03)
[2023-03-10] MEDS ORDERED: LORazepam 0.5 MG TABLET PO PRN
[2023-03-10] MEDS ORDERED: LORazepam 0.5 MG TABLET PO ONE (05:00)
[2023-03-10] MEDS: LORazepam 0.5 MG TABLET PO SCH ×2 (05:58→10:50)
[2023-03-10] MEDS: LEVOTHYROXINE NA 100 MCG TABLET (FP) PO SCH (06:15)
[2023-03-10] MEDS: PRENATAL VITAMINS W/ FOLIC ACID TABLET (FP) PO SCH (10:49)
[2023-03-10] MEDS: METOPROLOL TARTRATE 25 MG TABLET (FP) PO SCH (10:49)
[2023-03-10] MEDS: GABAPENTIN 300 MG CAPSULE PO SCH (10:49)
[2023-03-10] MEDS: BRIMONIDINE TARTRATE 0.2% OPHTHALMIC 5 ML BOTTLE OS SCH (10:49)
[2023-03-10] MEDS: ASPIRIN 81 MG CHEWABLE TABLETS PO SCH (10:49)
[2023-03-10] MEDS: BUPRENORPHINE/NALOXONE 4 MG/1 MG FILM PACKET SL SCH (10:50)
[2023-03-10] MEDS: TOLNAFTATE 1% CREAM 15 GM TUBE TP SCH (10:54)
[2023-03-10] MEDS: NICOTINE POLACRILEX 4 MG GUM BUC PRN (10:55)
[2023-03-10 12:47] VITALS: BP 134/81; PULSE 97; RESP 16; TEMP 98
[2023-03-11] MEDS ORDERED: LORazepam 0.5 MG TABLET PO ONE (05:00)
== END 2023-03-10 14:35 | disposition home or self-care (01) | DRG 773 ==
LOC: YASAS 16:58 → Y3N 20:08
PROVIDERS: ADMIT Allergy & Immunology; ATTEND Surgery
PROC: HZ2ZZZZ Detoxification Services for Substance Abuse Treatment (ICD-10-PCS; principal; 2023-03-06)
DX: F13.230 Sedative, hypnotic or anxiolytic dependence with withdrawal, uncomplicated (principal); F11.20 Opioid dependence, uncomplicated; F17.210 Nicotine dependence, cigarettes, uncomplicated; F19.24 Other psychoactive substance dependence with psychoactive substance-induced mood disorder; F19.282 Other psychoactive substance dependence with psychoactive substance-induced sleep disorder; F41.1 Generalized anxiety disorder; I48.0 Paroxysmal atrial fibrillation; I10 Essential (primary) hypertension; J45.20 Mild intermittent asthma, uncomplicated; E03.9 Hypothyroidism, unspecified; Z62.810 Personal history of physical and sexual abuse in childhood; Z86.69 Personal history of other diseases of the nervous system and sense organs; Z99.89 Dependence on other enabling machines and devices; Z88.1 Allergy status to other antibiotic agents
CPT/HCPCS: 36415; 80053; 85027; 86780; 87635

== ENCOUNTER 2023-06-01 12:23 | Inpatient (IN) | payer OTHER ==
[2023-06-01 13:22] VITALS: BMI 23.2
[2023-06-01] MEDS ORDERED: ONDANSETRON *ODT* 4 MG TABLET SL PRN (15:30)
[2023-06-01] MEDS ORDERED: BENZONATATE 200 MG CAPSULE PO PRN (15:30)
[2023-06-01] MEDS ORDERED: NALOXONE HCL (KLOXXADO) 8 MG SPRAY NS PRN (15:30)
[2023-06-01] MEDS ORDERED: DICYCLOMINE HCL 10 MG CAPSULE PO PRN (15:30)
[2023-06-01] MEDS ORDERED: ACETAMINOPHEN 325 MG TABLET (FP) PO PRN (15:30)
[2023-06-01] MEDS ORDERED: guaiFENesin 600 MG TABLET.ER (FP) PO PRN (15:30)
[2023-06-01] MEDS ORDERED: METHOCARBAMOL 500 MG TABLET PO PRN (15:30)
[2023-06-01] MEDS ORDERED: BISMUTH SUBSALICYLATE 262 MG/15 ML BTL PO PRN (15:30)
[2023-06-01] MEDS ORDERED: BENZOCAINE/MENTHOL (CHLORASEPTIC ) LOZENGE MM PRN (15:30)
[2023-06-01] MEDS ORDERED: IBUPROFEN 400 MG TABLET (FP) PO PRN (15:30)
[2023-06-01] MEDS ORDERED: NALOXONE HCL 0.4 MG/ML VIAL IM PRN (15:30)
[2023-06-01] MEDS ORDERED: IBUPROFEN 600 MG TABLET (FP) PO PRN (15:30)
[2023-06-01] MEDS ORDERED: hydrOXYzine PAMOATE 25 MG CAPSULE (FP) PO PRN (15:30)
[2023-06-01] MEDS ORDERED: LOPERAMIDE HCL 2 MG CAPSULE PO PRN (15:30)
[2023-06-01] MEDS ORDERED: POLYETHYLENE GLYCOL (HEALTHYLAX) 3350 17 GM PACKET PO PRN (15:30)
[2023-06-01] MEDS ORDERED: MAG HYDROX/AL HYDROX/SIMETH 30 ML UNIT-DOSE CUP PO PRN (15:30)
[2023-06-01] MEDS ORDERED: MAGNESIUM HYDROX 2400MG/30ML ORAL SUSPENSION 30 ML CUP PO PRN (15:30)
[2023-06-01] MEDS ORDERED: ALBUTEROL SO4 HFA INHALER IH PRN (15:34)
[2023-06-01] MEDS ORDERED: LORazepam 1 MG TABLET PO PRN (15:37)
[2023-06-01] MEDS: LEVOTHYROXINE NA 100 MCG TABLET (FP) PO SCH (15:57)
[2023-06-01] MEDS: ASPIRIN 81 MG CHEWABLE TABLETS PO SCH (15:58)
[2023-06-01] MEDS: BRIMONIDINE TARTRATE 0.2% OPHTHALMIC 5 ML BOTTLE OS SCH (22:50)
[2023-06-01] MEDS: MELATONIN 5 MG TABLETS PO SCH (22:55)
[2023-06-01] MEDS: LATANOPROST 0.005% OPHTH SOLN 2.5ML BOTTLE OS SCH (22:55)
[2023-06-01] MEDS: QUEtiapine FUMARATE 25 MG TABLET PO SCH (22:55)
[2023-06-01] MEDS: METOPROLOL TARTRATE 25 MG TABLET (FP) PO SCH (22:55)
[2023-06-01] MEDS: THIAMINE HCL 100 MG TABLET (FP) PO SCH (22:55)
[2023-06-01] MEDS: LORazepam 2 MG TABLET PO SCH (23:50)
[2023-06-02] MEDS: LORazepam 2 MG TABLET PO SCH ×4 (05:55→22:26)
[2023-06-02] MEDS: NICOTINE POLACRILEX 4 MG GUM BUC PRN ×4 (05:57→20:43)
[2023-06-02] MEDS: LEVOTHYROXINE NA 100 MCG TABLET (FP) PO SCH (06:28)
[2023-06-02] MEDS: PRENATAL VITAMINS W/ FOLIC ACID TABLET (FP) PO SCH (10:40)
[2023-06-02] MEDS: BRIMONIDINE TARTRATE 0.2% OPHTHALMIC 5 ML BOTTLE OS SCH ×2 (10:41→22:29)
[2023-06-02] MEDS: ASPIRIN 81 MG CHEWABLE TABLETS PO SCH (10:41)
[2023-06-02] MEDS: METOPROLOL TARTRATE 25 MG TABLET (FP) PO SCH ×2 (10:42→22:26)
[2023-06-02] MEDS: BUPRENORPHINE/NALOXONE 8 MG/2 MG FILM PACKET SL SCH (10:45)
[2023-06-02] MEDS: BUPRENORPHINE/NALOXONE 2 MG/0.5 MG FILM PACKET SL SCH (10:45)
[2023-06-02 12:09] LABS: CHLORIDE 106 mmol/L (98-107); POTASSIUM 3.8 mmol/L (3.5-5.1); SODIUM 141 mmol/L (136-145)
[2023-06-02 12:14] LABS: HEMATOCRIT 34.1 % (32.4-45.2); MCH 28.7 pg (25.7-33.7); MCHC 32.3 g/dl (32.0-36.0); MEAN CELL VOLUME 88.9 fl (80-96); MEAN PLT VOLUME 8.7 fl (7.5-11.1); PLATELET COUNT 200 10^3/uL (134-434); RBC 3.84 M/mm3 (3.60-5.2); RDW 19.2 % (11.6-15.6); WHITE BLOOD COUNT 4.3 K/mm3 (4.0-10.0)
[2023-06-02 12:20] LABS: CALCIUM 8.7 mg/dL (8.5-10.1)
[2023-06-02 12:21] LABS: ALBUMIN 3.2 g/dl (3.4-5.0); ANION GAP 8 mmol/L (4-13); BLOOD UREA NITROGEN 15.7 mg/dL (7-18); CO2 28 mmol/L (21-32); GLUCOSE,RANDOM 120 mg/dL (74-106)
[2023-06-02 12:24] LABS: CREATININE 0.6 mg/dL (0.55-1.3); SGOT/AST 20 U/L (15-37); SGPT/ALT 21 U/L (13-61)
[2023-06-02 12:25] LABS: BILIRUBIN,TOTAL 0.6 mg/dL (0.2-1); TOT PROT 6.8 g/dl (6.4-8.2)
[2023-06-02 12:27] LABS: ALK PHOS 82 U/L (45-117)
[2023-06-02] MEDS ORDERED: GABAPENTIN 100 MG CAPSULE PO SCH (13:30)
[2023-06-02] MEDS: CALCIUM CARBONATE 650 MG TABLET PO SCH (15:10)
[2023-06-02] MEDS: GABAPENTIN 100 MG CAPSULE PO SCH ×2 (15:19→22:25)
[2023-06-02] MEDS: MELATONIN 5 MG TABLETS PO SCH (22:25)
[2023-06-02] MEDS: THIAMINE HCL 100 MG TABLET (FP) PO SCH (22:26)
[2023-06-02] MEDS: QUEtiapine FUMARATE 25 MG TABLET PO SCH (22:26)
[2023-06-02] MEDS: LATANOPROST 0.005% OPHTH SOLN 2.5ML BOTTLE OS SCH (22:30)
[2023-06-03] MEDS: LORazepam 1 MG TABLET PO SCH ×4 (05:53→22:09)
[2023-06-03] MEDS: LEVOTHYROXINE NA 100 MCG TABLET (FP) PO SCH (06:26)
[2023-06-03] MEDS: CALCIUM CARBONATE 650 MG TABLET PO SCH (10:50)
[2023-06-03] MEDS: GABAPENTIN 100 MG CAPSULE PO SCH ×2 (10:50→22:09)
[2023-06-03] MEDS: PRENATAL VITAMINS W/ FOLIC ACID TABLET (FP) PO SCH (10:50)
[2023-06-03] MEDS: BRIMONIDINE TARTRATE 0.2% OPHTHALMIC 5 ML BOTTLE OS SCH ×2 (10:50→22:09)
[2023-06-03] MEDS: METOPROLOL TARTRATE 25 MG TABLET (FP) PO SCH ×3 (10:50→22:09)
[2023-06-03] MEDS: ASPIRIN 81 MG CHEWABLE TABLETS PO SCH (10:50)
[2023-06-03] MEDS: BUPRENORPHINE/NALOXONE 2 MG/0.5 MG FILM PACKET SL SCH (11:23)
[2023-06-03] MEDS: BUPRENORPHINE/NALOXONE 8 MG/2 MG FILM PACKET SL SCH (11:23)
[2023-06-03] MEDS: NICOTINE POLACRILEX 4 MG GUM BUC PRN ×4 (11:43→22:18)
[2023-06-03] MEDS ORDERED: BUPRENORPHINE/NALOXONE 2 MG/0.5 MG FILM PACKET SL ONE (12:00)
[2023-06-03] MEDS ORDERED: BUPRENORPHINE/NALOXONE 8 MG/2 MG FILM PACKET SL ONE (12:00)
[2023-06-03 14:43] LABS: PH,URINE 6.5 (5.0-8.0); URINE APPEARANCE CLEAR; URINE BILIRUBIN NEGATIVE (NEGATIVE); URINE COLOR YELLOW; URINE GLUCOSE (UA) NEGATIVE (NEGATIVE); URINE KETONE NEGATIVE (NEGATIVE); URINE LEUK ESTERASE NEGATIVE (NEGATIVE); URINE NITRITE NEGATIVE (NEGATIVE); URINE PROTEIN NEGATIVE (NEGATIVE); URINE UROBILINOGEN 0.2 mg/dL (0.2-1.0)
[2023-06-03] MEDS ORDERED: GABAPENTIN 100 MG CAPSULE PO SCH (22:00)
[2023-06-03] MEDS: THIAMINE HCL 100 MG TABLET (FP) PO SCH (22:08)
[2023-06-03] MEDS: MELATONIN 5 MG TABLETS PO SCH (22:08)
[2023-06-03] MEDS: QUEtiapine FUMARATE 25 MG TABLET PO SCH (22:09)
[2023-06-03] MEDS: LATANOPROST 0.005% OPHTH SOLN 2.5ML BOTTLE OS SCH (22:10)
[2023-06-04] MEDS ORDERED: LORazepam 0.5 MG TABLET PO PRN
[2023-06-04] MEDS: LORazepam 0.5 MG TABLET PO SCH ×4 (05:36→22:38)
[2023-06-04] MEDS: LEVOTHYROXINE NA 100 MCG TABLET (FP) PO SCH (06:38)
[2023-06-04] MEDS: METOPROLOL TARTRATE 25 MG TABLET (FP) PO SCH ×2 (09:54→22:35)
[2023-06-04] MEDS: CALCIUM CARBONATE 650 MG TABLET PO SCH (09:54)
[2023-06-04] MEDS: ASPIRIN 81 MG CHEWABLE TABLETS PO SCH (09:55)
[2023-06-04] MEDS: GABAPENTIN 100 MG CAPSULE PO SCH ×2 (09:55→22:34)
[2023-06-04] MEDS: PRENATAL VITAMINS W/ FOLIC ACID TABLET (FP) PO SCH (09:55)
[2023-06-04] MEDS: BUPRENORPHINE/NALOXONE 2 MG/0.5 MG FILM PACKET SL SCH (09:56)
[2023-06-04] MEDS: BRIMONIDINE TARTRATE 0.2% OPHTHALMIC 5 ML BOTTLE OS SCH ×2 (09:56→22:51)
[2023-06-04] MEDS: BUPRENORPHINE/NALOXONE 8 MG/2 MG FILM PACKET SL SCH (09:56)
[2023-06-04] MEDS: NICOTINE POLACRILEX 4 MG GUM BUC PRN ×3 (12:32→22:42)
[2023-06-04] MEDS: PANTOPRAZOLE 20 MG TABLET PO SCH (14:10)
[2023-06-04] MEDS ORDERED: PANTOPRAZOLE 20 MG TABLET PO ONE (18:40)
[2023-06-04] MEDS: MELATONIN 5 MG TABLETS PO SCH (22:34)
[2023-06-04] MEDS: THIAMINE HCL 100 MG TABLET (FP) PO SCH (22:34)
[2023-06-04] MEDS: QUEtiapine FUMARATE 25 MG TABLET PO SCH (22:34)
[2023-06-04] MEDS: LATANOPROST 0.005% OPHTH SOLN 2.5ML BOTTLE OS SCH (22:44)
[2023-06-05] MEDS ORDERED: LORazepam 0.5 MG TABLET PO ONE (05:00)
[2023-06-05] MEDS: NICOTINE POLACRILEX 4 MG GUM BUC PRN ×2 (05:59→09:55)
[2023-06-05] MEDS ORDERED: LEVOTHYROXINE NA 112 MCG TABLET (FP) PO SCH (07:00)
[2023-06-05] MEDS: PRENATAL VITAMINS W/ FOLIC ACID TABLET (FP) PO SCH (09:50)
[2023-06-05] MEDS: ASPIRIN 81 MG CHEWABLE TABLETS PO SCH (09:50)
[2023-06-05] MEDS: BRIMONIDINE TARTRATE 0.2% OPHTHALMIC 5 ML BOTTLE OS SCH (09:50)
[2023-06-05] MEDS: GABAPENTIN 100 MG CAPSULE PO SCH (09:50)
[2023-06-05] MEDS: CALCIUM CARBONATE 650 MG TABLET PO SCH (09:50)
[2023-06-05] MEDS: METOPROLOL TARTRATE 25 MG TABLET (FP) PO SCH (09:50)
[2023-06-05] MEDS: PANTOPRAZOLE 20 MG TABLET PO SCH (09:50)
[2023-06-05] MEDS: BUPRENORPHINE/NALOXONE 2 MG/0.5 MG FILM PACKET SL SCH (09:51)
[2023-06-05] MEDS: BUPRENORPHINE/NALOXONE 8 MG/2 MG FILM PACKET SL SCH (09:51)
[2023-06-05 12:38] VITALS: BP 129/82; PULSE 74; RESP 16; TEMP 97.3
[2023-06-05] MEDS ORDERED: PANTOPRAZOLE 20 MG TABLET PO ONE (19:00)
== END 2023-06-05 13:08 | disposition other institution (70) | DRG 773 ==
LOC: SUATTDRO 12:23 → YASAS 12:23 → Y3N 15:42
PROVIDERS: ADMIT Allergy & Immunology; ATTEND Surgery
PROC: HZ2ZZZZ Detoxification Services for Substance Abuse Treatment (ICD-10-PCS; principal; 2023-06-01)
DX: F10.230 Alcohol dependence with withdrawal, uncomplicated (principal); F11.10 Opioid abuse, uncomplicated; F31.9 Bipolar disorder, unspecified; F19.24 Other psychoactive substance dependence with psychoactive substance-induced mood disorder; G40.909 Epilepsy, unspecified, not intractable, without status epilepticus; E03.9 Hypothyroidism, unspecified; I10 Essential (primary) hypertension; K21.9 Gastro-esophageal reflux disease without esophagitis; B35.1 Tinea unguium; Z87.891 Personal history of nicotine dependence; Z99.89 Dependence on other enabling machines and devices; Z86.79 Personal history of other diseases of the circulatory system; Z88.1 Allergy status to other antibiotic agents; Z88.8 Allergy status to other drugs, medicaments and biological substances
CPT/HCPCS: 36415; 80053; 80307; 81003; 85027; 86780; 87635; 87811; G0480

== ENCOUNTER 2023-06-05 13:36 | Inpatient (IN) | payer OTHER ==
[2023-06-05] MEDS ORDERED: MAGNESIUM HYDROX 2400MG/30ML ORAL SUSPENSION 30 ML CUP PO PRN (13:56)
[2023-06-05] MEDS ORDERED: MAG HYDROX/AL HYDROX/SIMETH 30 ML UNIT-DOSE CUP PO PRN (13:56)
[2023-06-05] MEDS ORDERED: METHOCARBAMOL 500 MG TABLET PO PRN (13:56)
[2023-06-05] MEDS ORDERED: BENZONATATE 200 MG CAPSULE PO PRN (13:56)
[2023-06-05] MEDS ORDERED: IBUPROFEN 400 MG TABLET (FP) PO PRN (13:56)
[2023-06-05] MEDS ORDERED: ACETAMINOPHEN 325 MG TABLET (FP) PO PRN (13:56)
[2023-06-05] MEDS ORDERED: NALOXONE HCL 0.4 MG/ML VIAL IVPUSH PRN (13:56)
[2023-06-05] MEDS ORDERED: guaiFENesin 600 MG TABLET.ER (FP) PO PRN (13:56)
[2023-06-05] MEDS ORDERED: BENZOCAINE/MENTHOL (CHLORASEPTIC ) LOZENGE MM PRN (13:56)
[2023-06-05] MEDS ORDERED: NALOXONE HCL (KLOXXADO) 8 MG SPRAY NS PRN (13:56)
[2023-06-05] MEDS ORDERED: hydrOXYzine PAMOATE 25 MG CAPSULE (FP) PO PRN (13:56)
[2023-06-05] MEDS ORDERED: COLLOIDAL OATMEAL 1 BAR EACH TP PRN (13:56)
[2023-06-05] MEDS ORDERED: POLYETHYLENE GLYCOL (HEALTHYLAX) 3350 17 GM PACKET PO PRN (13:56)
[2023-06-05] MEDS ORDERED: LOPERAMIDE HCL 2 MG CAPSULE PO PRN (13:56)
[2023-06-05] MEDS ORDERED: ALBUTEROL SO4 HFA INHALER IH PRN (13:58)
[2023-06-05] MEDS: GABAPENTIN 100 MG CAPSULE PO SCH ×2 (15:05→21:30)
[2023-06-05] MEDS: NICOTINE POLACRILEX 4 MG GUM BUC PRN ×2 (18:11→23:24)
[2023-06-05] MEDS: MELATONIN 5 MG TABLETS PO SCH (21:30)
[2023-06-05] MEDS: QUEtiapine FUMARATE 25 MG TABLET PO SCH (21:31)
[2023-06-05] MEDS: METOPROLOL TARTRATE 25 MG TABLET (FP) PO SCH (21:31)
[2023-06-05] MEDS: THIAMINE HCL 100 MG TABLET (FP) PO SCH (21:31)
[2023-06-06] MEDS: LEVOTHYROXINE NA 112 MCG TABLET (FP) PO SCH (06:53)
[2023-06-06] MEDS: GABAPENTIN 100 MG CAPSULE PO SCH ×3 (06:53→21:31)
[2023-06-06] MEDS: NICOTINE POLACRILEX 4 MG GUM BUC PRN ×7 (06:54→23:36)
[2023-06-06] MEDS: BUPRENORPHINE/NALOXONE 8 MG/2 MG FILM PACKET SL SCH (10:05)
[2023-06-06] MEDS: ASPIRIN 81 MG CHEWABLE TABLETS PO SCH (10:05)
[2023-06-06] MEDS: BUPRENORPHINE/NALOXONE 2 MG/0.5 MG FILM PACKET SL SCH (10:05)
[2023-06-06] MEDS: PANTOPRAZOLE 20 MG TABLET PO SCH (10:06)
[2023-06-06] MEDS: METOPROLOL TARTRATE 25 MG TABLET (FP) PO SCH ×2 (10:06→21:31)
[2023-06-06] MEDS: PRENATAL VITAMINS W/ FOLIC ACID TABLET (FP) PO SCH (10:06)
[2023-06-06] MEDS: FLUoxetine HCL 20 MG CAPSULE PO SCH (11:05)
[2023-06-06] MEDS: IBUPROFEN 600 MG TABLET (FP) PO PRN ×2 (11:08→23:35)
[2023-06-06] MEDS: CALCIUM CARBONATE 650 MG TABLET PO SCH (12:10)
[2023-06-06] MEDS: TOLNAFTATE 1% CREAM 15 GM TUBE TP SCH ×2 (12:10→21:30)
[2023-06-06] MEDS: BRIMONIDINE TARTRATE 0.2% OPHTHALMIC 5 ML BOTTLE OS SCH (21:29)
[2023-06-06] MEDS: THIAMINE HCL 100 MG TABLET (FP) PO SCH (21:31)
[2023-06-06] MEDS: QUEtiapine FUMARATE 25 MG TABLET PO SCH (21:32)
[2023-06-06] MEDS ORDERED: LATANOPROST 0.005% OPHTH SOLN 2.5ML BOTTLE OS SCH (22:00)
[2023-06-06] MEDS: MELATONIN 5 MG TABLETS PO SCH (22:23)
[2023-06-06 22:32] VITALS: RESP 18
[2023-06-07] MEDS: GABAPENTIN 100 MG CAPSULE PO SCH (06:50)
[2023-06-07] MEDS: LEVOTHYROXINE NA 112 MCG TABLET (FP) PO SCH (06:51)
[2023-06-07] MEDS: NICOTINE POLACRILEX 4 MG GUM BUC PRN ×2 (06:51→08:58)
[2023-06-07 06:57] VITALS: TEMP 97.1
[2023-06-07 09:16] VITALS: BP 135/78; PULSE 64
[2023-06-07] MEDS: BUPRENORPHINE/NALOXONE 8 MG/2 MG FILM PACKET SL SCH (09:26)
[2023-06-07] MEDS: BUPRENORPHINE/NALOXONE 2 MG/0.5 MG FILM PACKET SL SCH (09:26)
[2023-06-07] MEDS: FLUoxetine HCL 20 MG CAPSULE PO SCH (09:27)
[2023-06-07] MEDS: CALCIUM CARBONATE 650 MG TABLET PO SCH (09:28)
[2023-06-07] MEDS: ASPIRIN 81 MG CHEWABLE TABLETS PO SCH (09:28)
[2023-06-07] MEDS: PANTOPRAZOLE 20 MG TABLET PO SCH (09:28)
[2023-06-07] MEDS: METOPROLOL TARTRATE 25 MG TABLET (FP) PO SCH (09:28)
[2023-06-07] MEDS: PRENATAL VITAMINS W/ FOLIC ACID TABLET (FP) PO SCH (09:28)
[2023-06-07] MEDS: TOLNAFTATE 1% CREAM 15 GM TUBE TP SCH (09:28)
[2023-06-07] MEDS: BRIMONIDINE TARTRATE 0.2% OPHTHALMIC 5 ML BOTTLE OS SCH (09:29)
== END 2023-06-07 10:00 | disposition left against medical advice (07) | DRG 770 ==
LOC: YASAS 13:36 → Y5N 13:38
PROVIDERS: ADMIT Allergy & Immunology; ATTEND Psychiatry & Neurology Pain Medicine
PROC: HZ42ZZZ Group Counseling for Substance Abuse Treatment, Cognitive-Behavioral (ICD-10-PCS; principal; 2023-06-05)
DX: F13.20 Sedative, hypnotic or anxiolytic dependence, uncomplicated (principal); F11.20 Opioid dependence, uncomplicated; F41.1 Generalized anxiety disorder; F32.A Depression, unspecified; F43.10 Post-traumatic stress disorder, unspecified; H40.3 Glaucoma secondary to eye trauma; I10 Essential (primary) hypertension; E03.9 Hypothyroidism, unspecified; J45.20 Mild intermittent asthma, uncomplicated; K21.9 Gastro-esophageal reflux disease without esophagitis; R76.8 Other specified abnormal immunological findings in serum; Z87.891 Personal history of nicotine dependence; Z88.1 Allergy status to other antibiotic agents
CPT/HCPCS: 36415; 86803; 87522

== ENCOUNTER 2023-08-28 12:51 | Inpatient (IN) | payer OTHER ==
[2023-08-28 13:20] VITALS: BMI 18.8
[2023-08-28] MEDS ORDERED: BENZONATATE 200 MG CAPSULE PO PRN (16:31)
[2023-08-28] MEDS ORDERED: NALOXONE HCL 0.4 MG/ML VIAL IM PRN (16:31)
[2023-08-28] MEDS ORDERED: MAGNESIUM HYDROX 2400MG/30ML ORAL SUSPENSION 30 ML CUP PO PRN (16:31)
[2023-08-28] MEDS ORDERED: NALOXONE HCL (KLOXXADO) 8 MG SPRAY NS PRN (16:31)
[2023-08-28] MEDS ORDERED: IBUPROFEN 400 MG TABLET (FP) PO PRN (16:31)
[2023-08-28] MEDS ORDERED: LOPERAMIDE HCL 2 MG CAPSULE PO PRN (16:31)
[2023-08-28] MEDS ORDERED: guaiFENesin 600 MG TABLET.ER (FP) PO PRN (16:31)
[2023-08-28] MEDS ORDERED: BENZOCAINE/MENTHOL (CHLORASEPTIC ) LOZENGE MM PRN (16:31)
[2023-08-28] MEDS ORDERED: POLYETHYLENE GLYCOL (HEALTHYLAX) 3350 17 GM PACKET PO PRN (16:31)
[2023-08-28] MEDS: PRENATAL VITAMINS W/ FOLIC ACID TABLET (FP) PO SCH (21:50)
[2023-08-28] MEDS: THIAMINE HCL 100 MG TABLET (FP) PO SCH (21:59)
[2023-08-28] MEDS: MELATONIN 5 MG TABLETS PO SCH (22:00)
[2023-08-29] MEDS: NICOTINE 14 MG/24 HOURS TOPICAL PATCH TD SCH (09:44)
[2023-08-29] MEDS: hydrOXYzine PAMOATE 25 MG CAPSULE (FP) PO PRN (09:46)
[2023-08-29 10:45] LABS: HEMATOCRIT 36.8 % (32.4-45.2); HEMOGLOBIN 12.3 GM/dL (10.7-15.3); MCH 30.2 pg (25.7-33.7); MCHC 33.4 g/dl (32.0-36.0); MEAN CELL VOLUME 90.6 fl (80-96); MEAN PLT VOLUME 8.5 fl (7.5-11.1); PLATELET COUNT 224 10^3/uL (134-434); RBC 4.06 M/mm3 (3.60-5.2); RDW 14.5 % (11.6-15.6); WHITE BLOOD COUNT 3.6 K/mm3 (4.0-10.0)
[2023-08-29 11:23] LABS: SYPHILIS W/ RPR CONF NON-REACTIVE (NONREACTIVE)
[2023-08-29 13:03] LABS: CHLORIDE 105 mmol/L (98-107); SODIUM 141 mmol/L (136-145)
[2023-08-29 13:12] LABS: ALBUMIN 3.2 g/dl (3.4-5.0); GLUCOSE,RANDOM 94 mg/dL (74-106)
[2023-08-29 13:13] LABS: CALCIUM 9.1 mg/dL (8.5-10.1)
[2023-08-29 13:14] LABS: ANION GAP 5 mmol/L (4-13); BLOOD UREA NITROGEN 14.1 mg/dL (7-18); CO2 31 mmol/L (21-32)
[2023-08-29 13:15] LABS: ALK PHOS 96 U/L (45-117); CREATININE 0.5 mg/dL (0.55-1.3); SGOT/AST 19 U/L (15-37); SGPT/ALT 18 U/L (13-61)
[2023-08-29 13:17] LABS: BILIRUBIN,TOTAL 0.4 mg/dL (0.2-1); TOT PROT 7.2 g/dl (6.4-8.2)
[2023-08-29] MEDS: BUPRENORPHINE/NALOXONE 12 MG-3 MG SL FILM PACKET SL SCH (14:58)
[2023-08-29] MEDS: CALCIUM CARBONATE 650 MG TABLET PO SCH (14:59)
[2023-08-29] MEDS: ASPIRIN 81 MG CHEWABLE TABLETS PO SCH (15:00)
[2023-08-29] MEDS: GABAPENTIN 100 MG CAPSULE PO SCH (15:00)
[2023-08-29] MEDS: PANTOPRAZOLE 20 MG TABLET PO SCH (15:00)
[2023-08-29] MEDS: METOPROLOL TARTRATE 25 MG TABLET (FP) PO SCH (15:00)
[2023-08-29] MEDS: QUEtiapine FUMARATE 25 MG TABLET PO SCH (21:54)
[2023-08-29] MEDS: LATANOPROST 0.005% OPHTH SOLN 2.5ML BOTTLE OS SCH (21:55)
[2023-08-30] MEDS: LEVOTHYROXINE NA 112 MCG TABLET (FP) PO SCH (06:19)
[2023-08-30] MEDS: FLUoxetine HCL 20 MG CAPSULE PO SCH (10:01)
[2023-08-30 15:14] LABS: PH,URINE 5.5 (5.0-8.0); URINE APPEARANCE CLEAR; URINE BILIRUBIN NEGATIVE (NEGATIVE); URINE COLOR YELLOW; URINE GLUCOSE (UA) NEGATIVE (NEGATIVE); URINE KETONE NEGATIVE (NEGATIVE); URINE LEUK ESTERASE NEGATIVE (NEGATIVE); URINE NITRITE NEGATIVE (NEGATIVE); URINE PROTEIN NEGATIVE (NEGATIVE); URINE UROBILINOGEN 0.2 mg/dL (0.2-1.0)
[2023-08-30] MEDS: NICOTINE POLACRILEX 4 MG GUM BUC PRN (19:54)
[2023-08-30] MEDS: ALBUTEROL SO4 HFA INHALER IH PRN (22:26)
[2023-08-31] MEDS: NICOTINE POLACRILEX 4 MG GUM BUC PRN (06:30)
[2023-08-31] MEDS ORDERED: TUBERCULIN PPD 5 TU/0.1ML VIAL ID ONE (12:40)
[2023-08-31] MEDS: BRIMONIDINE TARTRATE 0.2% OPHTHALMIC 5 ML BOTTLE OS SCH (13:28)
[2023-08-31] MEDS: OXYBUTYNIN CHLORIDE 5 MG TABLET PO SCH (13:29)
[2023-08-31] MEDS: IBUPROFEN 600 MG TABLET (FP) PO PRN (22:58)
[2023-09-01] MEDS: MAG HYDROX/AL HYDROX/SIMETH 30 ML UNIT-DOSE CUP PO PRN (19:35)
[2023-09-03 07:18] VITALS: RESP 18
[2023-09-03] MEDS: HYDROCORTISONE 2.5% LOTION - 1 BOTTLE TP PRN (13:44)
[2023-09-03] MEDS: CLOTRIMAZOLE 1% CREAM TP SCH (21:40)
[2023-09-04] MEDS: ACETAMINOPHEN 325 MG TABLET (FP) PO PRN (10:51)
[2023-09-04 12:08] LABS: INR 1.03 (0.83-1.09); PROTHROMBIN TIME (PATIENT) 11.9 SEC (9.7-13.0)
[2023-09-05] MEDS: OXYBUTYNIN CHLORIDE 5 MG TABLET PO SCH (14:23)
[2023-09-06 07:39] VITALS: TEMP 97.8
[2023-09-07 07:20] VITALS: PULSE 61
[2023-09-07 10:13] VITALS: BP 133/87
== END 2023-09-07 10:42 | disposition home or self-care (01) | DRG 772 ==
LOC: YASAS 12:51 → Y5N 21:09
PROVIDERS: ADMIT Allergy & Immunology; ATTEND Psychiatry & Neurology Pain Medicine
PROC: HZ42ZZZ Group Counseling for Substance Abuse Treatment, Cognitive-Behavioral (ICD-10-PCS; principal; 2023-08-28)
DX: F13.20 Sedative, hypnotic or anxiolytic dependence, uncomplicated (principal); F11.20 Opioid dependence, uncomplicated; F17.210 Nicotine dependence, cigarettes, uncomplicated; F41.1 Generalized anxiety disorder; F32.A Depression, unspecified; F43.10 Post-traumatic stress disorder, unspecified; I10 Essential (primary) hypertension; K21.9 Gastro-esophageal reflux disease without esophagitis; J45.20 Mild intermittent asthma, uncomplicated; L30.9 Dermatitis, unspecified; H40.3 Glaucoma secondary to eye trauma; N39.498 Other specified urinary incontinence; M41.9 Scoliosis, unspecified; Z99.89 Dependence on other enabling machines and devices; Z88.8 Allergy status to other drugs, medicaments and biological substances; Z88.1 Allergy status to other antibiotic agents
CPT/HCPCS: 36415; 80053; 80305; 80307; 81003; 85027; 85610; 86780; 86803; 87522; 87635

== ENCOUNTER 2023-10-29 10:24 | Inpatient (IN) | payer OTHER ==
[2023-10-29 11:36] VITALS: BMI 22.3
[2023-10-29] MEDS ORDERED: ALBUTEROL SO4 HFA INHALER IH PRN (12:14)
[2023-10-29] MEDS ORDERED: LORazepam 1 MG TABLET PO PRN (12:18)
[2023-10-29] MEDS: PANTOPRAZOLE 20 MG TABLET PO SCH (12:25)
[2023-10-29] MEDS ORDERED: ONDANSETRON *ODT* 4 MG TABLET SL PRN (12:28)
[2023-10-29] MEDS ORDERED: ACETAMINOPHEN 325 MG TABLET (FP) PO PRN (12:28)
[2023-10-29] MEDS ORDERED: LOPERAMIDE HCL 2 MG CAPSULE PO PRN (12:28)
[2023-10-29] MEDS ORDERED: NALOXONE HCL (KLOXXADO) 8 MG SPRAY NS PRN (12:28)
[2023-10-29] MEDS ORDERED: BENZOCAINE/MENTHOL (CHLORASEPTIC ) LOZENGE MM PRN (12:28)
[2023-10-29] MEDS ORDERED: P-EPHED 60MG/TRIPROLIDI 2.5MG TABLET PO PRN (12:28)
[2023-10-29] MEDS ORDERED: MAGNESIUM HYDROX 2400MG/30ML ORAL SUSPENSION 30 ML CUP PO PRN (12:28)
[2023-10-29] MEDS ORDERED: IBUPROFEN 400 MG TABLET (FP) PO PRN (12:28)
[2023-10-29] MEDS ORDERED: guaiFENesin 600 MG TABLET.ER (FP) PO PRN (12:28)
[2023-10-29] MEDS ORDERED: BISMUTH SUBSALICYLATE 262 MG/15 ML BTL PO PRN (12:28)
[2023-10-29] MEDS ORDERED: POLYETHYLENE GLYCOL (HEALTHYLAX) 3350 17 GM PACKET PO PRN (12:28)
[2023-10-29] MEDS ORDERED: METHOCARBAMOL 500 MG TABLET PO PRN (12:28)
[2023-10-29] MEDS ORDERED: NALOXONE HCL 0.4 MG/ML VIAL IM PRN (12:28)
[2023-10-29] MEDS ORDERED: BENZONATATE 200 MG CAPSULE PO PRN (12:28)
[2023-10-29] MEDS ORDERED: DICYCLOMINE HCL 10 MG CAPSULE PO PRN (12:28)
[2023-10-29] MEDS: LORazepam 2 MG TABLET PO SCH (17:47)
[2023-10-29] MEDS: NICOTINE POLACRILEX 4 MG GUM BUC PRN (17:49)
[2023-10-29] MEDS: LATANOPROST 0.005% OPHTH SOLN 2.5ML BOTTLE OS SCH (22:01)
[2023-10-29] MEDS: BRIMONIDINE TARTRATE 0.2% OPHTHALMIC 5 ML BOTTLE OU SCH (22:08)
[2023-10-29] MEDS: THIAMINE 100 MG TABLET PO SCH (22:59)
[2023-10-29] MEDS: MELATONIN 5 MG TABLETS PO SCH (22:59)
[2023-10-29] MEDS: QUEtiapine FUMARATE 25 MG TABLET PO SCH (23:00)
[2023-10-29] MEDS: METOPROLOL TARTRATE 25 MG TABLET (FP) PO SCH (23:00)
[2023-10-29] MEDS: MAG HYDROX/AL HYDROX/SIMETH 30 ML UNIT-DOSE CUP PO PRN (23:46)
[2023-10-30] MEDS: LORazepam 1 MG TABLET PO SCH (05:28)
[2023-10-30] MEDS: LEVOTHYROXINE NA 112 MCG TABLET (FP) PO SCH (08:00)
[2023-10-30] MEDS: FLUoxetine HCL 20 MG CAPSULE PO SCH (10:15)
[2023-10-30] MEDS: CALCIUM CARBONATE 650 MG TABLET PO SCH (10:15)
[2023-10-30] MEDS: FOLIC ACID 1 MG TABLET (FP) PO SCH (10:15)
[2023-10-30] MEDS: ASPIRIN 81 MG CHEWABLE TABLETS PO SCH (10:16)
[2023-10-30] MEDS: PRENATAL VITAMINS W/ FOLIC ACID TABLET (FP) PO SCH (10:17)
[2023-10-30 12:20] LABS: POTASSIUM 4.1 mmol/L (3.5-5.1)
[2023-10-30 12:21] LABS: HEMATOCRIT 35.5 % (32.4-45.2); HEMOGLOBIN 12.1 GM/dL (10.7-15.3); MCH 31.1 pg (25.7-33.7); MEAN CELL VOLUME 91.4 fl (80-96); MEAN PLT VOLUME 8.3 fl (7.5-11.1); PLATELET COUNT 211 10^3/uL (134-434); RBC 3.89 M/mm3 (3.60-5.2); RDW 14.3 % (11.6-15.6); WHITE BLOOD COUNT 6.3 K/mm3 (4.0-10.0)
[2023-10-30 12:36] LABS: ALBUMIN 3.3 g/dl (3.4-5.0); CALCIUM 9.4 mg/dL (8.5-10.1)
[2023-10-30 12:39] LABS: CREATININE 0.5 mg/dL (0.55-1.3)
[2023-10-30 12:41] LABS: BILIRUBIN,TOTAL 0.4 mg/dL (0.2-1)
[2023-10-30 12:44] LABS: TOT PROT 7.2 g/dl (6.4-8.2)
[2023-10-30] MEDS: IBUPROFEN 600 MG TABLET (FP) PO PRN (17:45)
[2023-10-30] MEDS: BUPRENORPHINE/NALOXONE 8 MG/2 MG FILM PACKET SL SCH (22:27)
[2023-10-31] MEDS: LORazepam 0.5 MG TABLET PO SCH (05:45)
[2023-10-31] MEDS: BUPRENORPHINE/NALOXONE 4 MG/1 MG FILM PACKET SL SCH (13:22)
[2023-10-31] MEDS ORDERED: BUPRENORPHINE/NALOXONE 4 MG/1 MG FILM PACKET SL SCH (14:00)
[2023-10-31 21:12] VITALS: TEMP 97.7
[2023-11-01] MEDS ORDERED: LORazepam 0.5 MG TABLET PO PRN
[2023-11-01] MEDS: LORazepam 0.5 MG TABLET PO ONE (05:03)
[2023-11-01 09:17] VITALS: BP 123/68; PULSE 65; RESP 16
[2023-11-01] MEDS: HYDROCORTISONE 1% TOPICAL CREAM 30 GM TUBE TP SCH (11:58)
[2023-11-01] MEDS ORDERED: BUPRENORPHINE/NALOXONE 4 MG/1 MG FILM PACKET SL SCH (14:00)
== END 2023-11-01 12:40 | disposition home or self-care (01) | DRG 773 ==
LOC: YASAS 10:24 → Y6N 12:59
PROVIDERS: ADMIT Allergy & Immunology; ATTEND Surgery
PROC: HZ2ZZZZ Detoxification Services for Substance Abuse Treatment (ICD-10-PCS; principal; 2023-10-29)
DX: F13.230 Sedative, hypnotic or anxiolytic dependence with withdrawal, uncomplicated (principal); F11.20 Opioid dependence, uncomplicated; F25.1 Schizoaffective disorder, depressive type; F41.9 Anxiety disorder, unspecified; F43.10 Post-traumatic stress disorder, unspecified; H40.1130 Primary open-angle glaucoma, bilateral, stage unspecified; I10 Essential (primary) hypertension; J45.20 Mild intermittent asthma, uncomplicated; E03.9 Hypothyroidism, unspecified; R79.89 Other specified abnormal findings of blood chemistry; Z62.810 Personal history of physical and sexual abuse in childhood; Z63.8 Other specified problems related to primary support group; Z86.79 Personal history of other diseases of the circulatory system; Z87.828 Personal history of other (healed) physical injury and trauma
CPT/HCPCS: 36415; 80053; 85027; 86780